=== PATIENT | male | born 1970 | race Caucasian/White ===

== ENCOUNTER 2017-01-13 11:38 | Inpatient (IN) | payer BC ==
[2017-01-13] MEDS ORDERED: Sodium Chloride 0.9% 1,000 ML IV STA ×2 (11:45→14:14)
--- NOTE | 2017-01-13 11:55 | ED PDOC ---
Arrival/HPI - General Time Seen by Provider: 01/13/17 11:40 Historian: Patient - History of Present Illness Narrative History of Present Illness (Text): 01/13/17 11:45 A 46 year old male, who denies any past medical history, brought into the emergency department by EMS complaining of epigastric abdominal pain since this morning. Patient notes nausea, lightheadedness and diaphoresis. Contrary to triage patient denies any chest pain but says his pain is epigastric. Patient denies any fever, chills, vomiting, diarrhea, constipation, shortness of breath or any other complaints. PMD: None Time/Duration: Other (this morning) Symptom Course: Unchanged Quality: Other Context: Other Past Medical History - Provider Review Nursing Documentation Reviewed: Yes Family/Social History - Physician Review Nursing Documentation Reviewed: Yes Family/Social History: No Known Family HX Allergies/Home Meds Allergies/Adverse Reactions: Allergies No Known Allergies Allergy (Verified 01/13/17 11:48) Home Medications: Home Meds Medication Instructions Recorded Confirmed No Known Home Med 01/13/17 01/13/17 Review of Systems - Physician Review All systems were reviewed & negative as marked: Yes - Review of Systems Constitutional: absent: Fevers, Night Sweats Respiratory: absent: SOB Cardiovascular: absent: Chest Pain Gastrointestinal: Abdominal Pain (epigastric), Nausea. absent: Constipation, Diarrhea, Vomiting Endocrine: Diaphoresis Physical Exam Vital Signs Reviewed: Yes Vital Signs Temp Pulse Resp BP Pulse Ox 01/13/17 14:10 88 18 95/63 L 100 01/13/17 13:09 97.6 F 85 18 106/64 98 01/13/17 12:56 98.0 F 78 17 106/64 99 Temperature: Afebrile Blood Pressure: Normal Pulse: Regular Respiratory Rate: Normal Appearance: Positive for: Well-Appearing, Non-Toxic, Comfortable Pain Distress: None Mental Status: Positive for: Alert and Oriented X 3 - Systems Exam Head: Present: Atraumatic, Normocephalic Pupils: Present: PERRL Extroacular Muscles: Present: EOMI Conjunctiva: Present: Normal Mouth: Present: Moist Mucous Membranes Neck: Present: Normal Range of Motion Respiratory/Chest: Present: Clear to Auscultation, Good Air Exchange. No: Respiratory Distress, Accessory Muscle Use Cardiovascular: Present: Regular Rate and Rhythm, Normal S1, S2. No: Murmurs Abdomen: Present: Tenderness (epigastric tenderness to palpation), Normal Bowel Sounds. No: Distention, Peritoneal Signs, Rebound, Guarding, McBurney's Point Tender, Rovsing's Sign Present Rectal: Present: Melena (watery stool). No: Hemorrhoids, Normal Rectal Tone, Fissures, Nodule/Mass/Lesions Back: Present: Normal Inspection Upper Extremity: Present: Normal Inspection. No: Cyanosis, Edema Lower Extremity: Present: Normal Inspection. No: Edema Neurological: Present: GCS=15, CN II-XII Intact, Speech Normal Skin: Present: Warm, Dry, Normal Color. No: Rashes Psychiatric: Present: Alert, Oriented x 3, Normal Insight, Normal Concentration Medical Decision Making ED Course and Treatment: 01/13/17 11:45 Impression: A 46 year old male with epigastric abdominal pain. Patient notes nausea and diaphoresis, but denies chest pain. Differential Diagnosis included but are not limited to: Gastritis vs. Pancreatitis vs GI bleed Plan: -- Chest xray -- EKG -- Labs -- Pepcid, IV fluids and Zofran -- Reassess and disposition Progress Notes: EKG shows sinus tachycardia at 102 BPM. Interpreted by me. Report Date : 01/13/2017 12:40:44 Procedure: Chest xray Dictator : Oscar Griggs MD IMPRESSION: No active disease. 01/13/17 12:56 Patient reports this morning her noted black stool. Rectal exam showed positive for melena. Labs reviewed, hemoglobin of 7.5. Plan includes blood transfusion, consent obtained. Will admit to telemetry observation. 01/13/17 14:[address] Chapa who requests validation engineer Dr. Camarena for GI. Discussed case with Dr. Camarena who recommends Protonix IV bolus and then drip. Also recommends NPO for now and she will come and evaluate patient. Patient is hemodynamically stable for Telemetry. 01/13/17 14:31 Patient's BP dropped to 95/63 with HR [address]. [address] Dr. Pappas ICU who came right away to the ED to see patient. He will accept the case to the ICU. - Critical Care Critical Care Minutes: 60 minutes - Lab Interpretations Lab Results: 01/13/17 12:22 01/13/17 12:22 Lab Results 01/13/17 13:57: Iron 201 H, TIBC 247 L, % Saturation 81 H 01/13/17 13:45: Blood Type Pending, Antibody Screen Pending, Crossmatch See Detail, BBK History Checked No verified bt 01/13/17 13:00: POC Glucose (mg/dL) 148 H 01/13/17 12:22: Sodium 141, Potassium 3.9, Chloride 108 H, Carbon Dioxide 25, Anion Gap 12, BUN 26 H, Creatinine 0.9, Est GFR ( Amer) > 60, Est GFR ( Non-Af Amer) > 60, Random Glucose 108, Calcium 8.1 L, Total Bilirubin 0.5, AST 72 H, ALT 56, Alkaline Phosphatase 65, Lactate Dehydrogenase 336, Total Creatine Kinase 126, Troponin I < 0.01, Total Protein 5.0 L, Albumin 2.6 L, Globulin 2.4, Albumin/Globulin Ratio 1.1, Lipase 47 01/13/17 12:22: WBC 6.5, RBC 2.38 L, Hgb 7.5 L, Hct 22.6 L, MCV 95.0, MCH 31.5, MCHC 33.2, RDW 13.0, Plt Count 194, MPV 10.9, Gran % 73.7 H, Lymph % (Auto) 19.3 L, [place] % (Auto) 5.8, Eos % (Auto) 0.9 L, Baso % (Auto) 0.3, Gran # 4.81, Lymph # 1.3, [place] # 0.4, Eos # 0.1, Baso # 0.02 I have reviewed the lab results: Yes - RAD Interpretation Radiology Orders: 01/13/17 11:47 CXR [CHEST PORTABLE] [RAD] Stat - Medication Orders Current Medication Orders: Pantoprazole Sodium (Protonix 40mg Ivpb) 40 mg in 100 mls @ 20 mls/hr IVPB .Q5H KENYATTA Sodium Chloride (Sodium Chloride 0.9%) 1,000 mls @ 999 mls/hr IV .Q1H1M STA Stop: 01/13/17 15:14 Discontinued Medications Famotidine (Pepcid) 20 mg IVP STAT STA Stop: 01/13/17 11:46 Last Admin: 01/13/17 12:22 Dose: 20 mg IVP Administration Document 01/13/17 12:22 AD (Rec: 01/13/17 12:23 AD [facility] [id number] Charges for Administration # of IVP Administrations 1 Sodium Chloride (Sodium Chloride 0.9%) 1,000 mls @ 1,000 mls/hr IV .Q1H STA Stop: 01/13/17 12:44 Last Admin: 01/13/17 12:23 Dose: 1,000 mls/hr eMAR Start Stop Document 01/13/17 12:23 AD (Rec: 01/13/17 12:23 AD [facility] [id number] Intravenous Solution Start Date 01/13/17 Start Time 12:23 Ondansetron HCl (Zofran Inj) 4 mg IVP STAT STA Stop: 01/13/17 11:46 Last Admin: 01/13/17 12:22 Dose: 4 mg IVP Administration Document 01/13/17 12:22 AD (Rec: 01/13/17 12:22 AD [facility] [id number]) Charges for Administration # of IVP Administrations 1 Pantoprazole Sodium (Protonix Inj) 80 mg IVP STAT STA Stop: 01/13/17 13:01 Last Admin: 01/13/17 14:27 Dose: 80 mg IVP Administration Document 01/13/17 14:27 AD (Rec: 01/13/17 14:27 AD [facility] [id number]) Charges for Administration # of IVP Administrations 1 - Scribe Statement The provider has reviewed the documentation as recorded by the Scribe Amanda Heath Provider Scribe Attestation: All medical record entries made by the Scribe were at my direction and personally dictated by me. I have reviewed the chart and agree that the record accurately reflects my personal performance of the history, physical exam, medical decision making, and the department course for this patient. I have also personally directed, reviewed, and agree with the discharge instructions and disposition. Disposition/Present on Arrival - Present on Arrival Any Indicators Present on Arrival: No - Disposition Have Diagnosis and Disposition been Completed?: Yes Diagnosis: GI bleeding Disposition Time: 12:56 Patient Plan: Admission, ICU Patient Problems: Current Active Problems Problem Status Onset GI bleeding Acute Condition: CRITICAL
[2017-01-13 12:36] LABS: ALB/GLOB RATIO 1.1 (1.1-1.8); ALKALINE PHOSPHATASE 65 U/L (38-126); ALT/SGPT 56 U/L (7-56); AST/SGOT 72 U/L (17-59); BASO # 0.02 K/mm3 (0.0-2.0); BASO % 0.3 % (0.0-3.0); BILIRUBIN,TOTAL 0.5 mg/dL (0.2-1.3); BLOOD UREA NITROGEN 26 mg/dL (7-21); CALCIUM 8.1 mg/dL (8.4-10.5); CARBON DIOXIDE 25 mmol/L (21-33); CHLORIDE 108 mmol/L (98-107); EOS # 0.1 (0.0-0.7); EOS % 0.9 % (1.5-5.0); GFR AFRICAN-AMERICAN > 60; GLUCOSE,RANDOM 108 mg/dL (70-110); GRAN # 4.81 (1.4-6.5); GRAN % 73.7 % (50.0-68.0); LIPASE 47 U/L (23-300); LYMPH # 1.3 (1.2-3.4); LYMPH % 19.3 % (22.0-35.0); MEAN CORPUSCULAR HEMOGLOBIN 31.5 pg (25.0-35.0); MEAN CORPUSCULAR HGB CONC 33.2 g/dl (31.0-37.0); MEAN PLATELET VOLUME 10.9 fl (7.0-11.0); MONO # 0.4 (0.1-0.6); MONO % 5.8 % (1.0-6.0); POTASSIUM 3.9 mmol/L (3.6-5.0); SODIUM 141 mmol/L (132-148); WHITE BLOOD COUNT 6.5 10^3/ul (4.5-11.0)
[2017-01-13 12:39] LABS: HEMATOCRIT 22.6 % (42.0-52.0)
--- NOTE | 2017-01-13 12:42 | RAD ---
HISTORY: chest pain COMPARISON: No prior. FINDINGS: LUNGS: No active pulmonary disease. PLEURA: No significant pleural effusion identified, no pneumothorax apparent. CARDIOVASCULAR: Normal. OSSEOUS STRUCTURES: No significant abnormalities. VISUALIZED UPPER ABDOMEN: Normal. OTHER FINDINGS: None. IMPRESSION: No active disease.
[2017-01-13 12:47] LABS: TROPONIN I < 0.01 ng/mL
[2017-01-13 14:18] LABS: IRON 201 ug/dL (45-180)
[2017-01-13 14:28] LABS: INR 1.06 (0.93-1.08); PARTIAL THROMBOPLASTIN TIME 23.1 Seconds (23.7-30.8)
[2017-01-13] MEDS: Pantoprazole 40mg/100ml IVPB 40 MG/100 ML BAG IVPB SCH ×2 (14:36→19:30)
[2017-01-13] MEDS ORDERED: Sodium Chloride 0.9% 1,000 ML IV SCH (15:15)
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
--- NOTE | 2017-01-13 17:49 | CP.PCM.CON ---
History of Present Illness - History of Present Illness History of Present Illness: General Surgery Consult for Dr. Franco 46M S&E at bedside at ICU. Patient states he is admitted for: epigastric abdominal pain that began in the morning and melena in the ED. Patient states he 's never had this before. Patient admits to having acid reflux and takes no medications at home. Patient does not have a PCP/PMD. Patient states his abdominal pain is below his umbilicus now and is characterized as dull. Patient denies F/C, Diarrhea, constipation, SOB consulted for: upper GI bleed. PMH: no past medical history PSH: none SHX: denies tobacco, illicit drug use, three shots of liquor and tow beers daily for many years FHx: colon cancer at 43 yo allergies NKDA Past Patient History - Past Social History Smoking Status: Never Smoked - PSYCHIATRIC Hx Substance Use: No - SURGICAL HISTORY Hx Surgeries: Yes (pneumothorax) Meds Allergies/Adverse Reactions: Allergies Allergy/AdvReac Type Severity Reaction Status Date / Time No Known Allergies Allergy Verified 01/13/17 11:48 - Medications Medications: Current Medications Pantoprazole Sodium (Protonix 40mg Ivpb) 40 mg in 100 mls @ 20 mls/hr IVPB .Q5H KENYATTA Last Admin: 01/13/17 14:36 Dose: 20 mls/hr Octreotide Acetate 1,250 mcg/ (Sodium Chloride) 252.5 mls @ 5.05 mls/hr IV .Q24H KENYATTA; 25 MCG/HR PRN Reason: Protocol Last Admin: 01/13/17 16:12 Dose: 25 mcg/hr, 5.05 mls/hr Sodium Chloride (Sodium Chloride 0.9%) 1,000 mls @ 100 mls/hr IV .Q10H KENYATTA Last Admin: 01/13/17 16:13 Dose: 100 mls/hr Folic Acid 1 mg/ Thiamine HCl 100 mg/ Multivitamins/Vitamin C 10 ml/ Sodium Chloride 1,011.2 mls @ 100 mls/hr IV .Q10H7M KEN[place]TA Lorazepam (Ativan) 1 mg IVP Q6H PRN; Protocol PRN Reason: Anxiety Physical Exam - Constitutional Appears: Non-toxic - Head Exam Head Exam: NORMAL INSPECTION - Eye Exam Eye Exam: EOMI, Normal appearance - ENT Exam ENT Exam: Mucous Membranes Moist - Neck Exam Neck exam: Positive for: Full Rom, Normal Inspection - Respiratory Exam Respiratory Exam: Clear to Auscultation Bilateral, NORMAL BREATHING PATTERN. absent: Accessory Muscle Use, Respiratory Distress - Cardiovascular Exam Cardiovascular Exam: REGULAR RHYTHM - GI/Abdominal Exam GI & Abdominal Exam: Normal Bowel Sounds, Soft, Tenderness. absent: Firm, Guarding, Rigid Additional comments: lower abdominal pain. no rebound. defined as sore and dull. - Extremities Exam Extremities exam: Positive for: full ROM, normal inspection. Negative for: joint swelling, pedal edema - Neurological Exam Neurological exam: Alert, Oriented x3 - Psychiatric Exam Psychiatric exam: Normal Affect, Normal Mood - Skin Skin Exam: Dry, Intact, Normal Color, Warm Results - Vital Signs Recent Vital Signs: Last Vital Signs Temp 98.1 F 01/13/17 16:40 Pulse 82 01/13/17 16:40 Resp 30 H 01/13/17 16:31 BP 112/62 01/13/17 16:31 Pulse Ox 89 L 01/13/17 16:31 - Labs Result Diagrams: 01/13/17 12:22 01/13/17 12:22 Labs: Laboratory Results - last 24 hr 01/13/17 01/13/17 14:10 14:17 PT 11.5 INR 1.06 APTT 23.1 L Blood Type Confirm O POSITIVE Assessment & Plan - Assessment and Plan (Free Text) Assessment: 46M presents with upper GI bleed Plan: NPO transfuse as needed, 2u PRBC ordered to transfuse per ICU team f/u GI recommendations f/u EGD results c/w pain control d/w Dr. Salvador Dickinson DO PGY1 - Date & Time Date: 01/13/17 Time: 17:48
[2017-01-13] MEDS ORDERED: Iohexol 240 (50 ml) ONE (17:58)
[2017-01-13 18:17] LABS: BASO # 0.01 K/mm3 (0.0-2.0); BASO % 0.1 % (0.0-3.0); GRAN # 9.5 (1.4-6.5); GRAN % 84.3 % (50.0-68.0); LYMPH # 1.4 (1.2-3.4); LYMPH % 12.1 % (22.0-35.0); MEAN CELL VOLUME 93.9 fl (80.0-105.0); MEAN CORPUSCULAR HEMOGLOBIN 32.2 pg (25.0-35.0); MEAN CORPUSCULAR HGB CONC 34.3 g/dl (31.0-37.0); MONO # 0.4 (0.1-0.6); MONO % 3.5 % (1.0-6.0); RED CELL DISTRIBUTION WIDTH 12.9 % (11.5-14.5); WHITE BLOOD COUNT 11.3 10^3/ul (4.5-11.0)
[2017-01-13 18:19] LABS: VENOUS BLOOD GAS BASE EXCESS -0.8 mmol/L (0.0-2.0); VENOUS BLOOD PH 7.38 (7.32-7.43)
[2017-01-13 18:29] LABS: HEMATOCRIT 21.6 % (42.0-52.0)
[2017-01-13] MEDS: Folic Acid 1 MG, Thiamine 100 MG, Multivitamin (MVI) 10 ML in Sodium Chloride 0.9% 1,00... IV SCH (19:38)
[2017-01-13] MEDS ORDERED: Multivitamin (MVI) 10 ML, Thiamine 100 MG, Folic Acid 1 MG in Sodium Chloride 0.9% 1,00... IV ONE (21:33)
--- NOTE | 2017-01-13 22:45 | CARD ---
APPROVED REPORT EKG Measurement Heart [id number] <Conclusion> Sinus tachycardia Otherwise normal ECG
[2017-01-14] MEDS: Pantoprazole 40mg/100ml IVPB 40 MG/100 ML BAG IVPB SCH ×2 (00:16→05:15)
[2017-01-14 00:33] LABS: VENOUS BLOOD GAS BASE EXCESS -1.8 mmol/L (0.0-2.0); VENOUS BLOOD PH 7.38 (7.32-7.43)
[2017-01-14 00:38] LABS: BASO # 0.01 K/mm3 (0.0-2.0); BASO % 0.1 % (0.0-3.0); EOS # 0.1 (0.0-0.7); EOS % 0.9 % (1.5-5.0); GRAN # 6.28 (1.4-6.5); GRAN % 67.4 % (50.0-68.0); LYMPH # 2.4 (1.2-3.4); LYMPH % 25.4 % (22.0-35.0); MEAN CELL VOLUME 91.7 fl (80.0-105.0); MEAN CORPUSCULAR HEMOGLOBIN 32.3 pg (25.0-35.0); MEAN CORPUSCULAR HGB CONC 35.2 g/dl (31.0-37.0); MEAN PLATELET VOLUME 11.1 fl (7.0-11.0); MONO # 0.6 (0.1-0.6); MONO % 6.2 % (1.0-6.0); RED CELL DISTRIBUTION WIDTH 13.6 % (11.5-14.5); WHITE BLOOD COUNT 9.3 10^3/ul (4.5-11.0)
[2017-01-14] MEDS: Folic Acid 1 MG, Thiamine 100 MG, Multivitamin (MVI) 10 ML in Sodium Chloride 0.9% 1,00... IV SCH ×2 (03:00→21:07)
--- NOTE | 2017-01-14 04:02 | CON ---
DATE: 01/13/2017 HISTORY OF PRESENT ILLNESS: This is a 46-year-old gentleman without significant past medical history, who was brought into emergency room by EMS after developed acute abdominal pain since this morning. He also reported nauseated, lightheaded, and diaphoretic. The patient, however, denies any chest pain, but states that the pain is epigastric. The patient also had one bloody bowel movement and his blood pressure at one point dropped down to high 90 systolic. No fever. No chills. No sweats. No constipation. PERSONAL HISTORY: None. SOCIAL HISTORY: The patient is heavy alcohol drinker. He drinks every day 3-4 shots of vodka. No tobacco or smoking. No illicit drug abuse. FAMILY HISTORY: Noncontributory. ALLERGIES: NO KNOWN DRUG ALLERGIES. REVIEW OF SYSTEMS: Revealed a 12-point system other than mentioned in history of present illness is negative. MEDICATIONS: None. PHYSICAL EXAMINATION VITAL SIGNS: Blood pressure 110/40, heart rate 94, temperature 98.1, respiratory rate 16, and oxygen saturation 100% on room air. HEENT: Head and neck are atraumatic. LUNGS: Clear to auscultation bilaterally. HEART: Regular rate, S1 and S2 normal. ABDOMEN: Soft, tender mildly in mesogastric area. No rebound tenderness. No peritoneal signs. MUSCULOSKELETAL: No C/C/E. SKIN: Color moist. PSYCHIATRIC: The patient is alert and oriented x3. LABORATORY DATA: WBC 6.5, hemoglobin 7.5, and platelet count 194. Sodium 141, potassium 3.9, chloride 108, carbon dioxide 25, BUN 26, and creatinine 0.9. Troponin less than 0.01, lipase 47, albumin 2.6, AST is 72, and ALT 56. INR 1.06. Blood glucose 148. Chest x-ray, no active pulmonary disease. ASSESSMENT AND PLAN: This is a 46-year-old gentleman who presented with what appears to be upper gastrointestinal bleeding/massive/symptomatic. No prior history of gastrointestinal bleeding, liver disease, or hemoglobin level available. The patient is known to be a heavy drinker and possibility of could not be ruled out at present time. We will proceed with n.p.o., IV fluid, Protonix drip, octreotide drip, and serial CBC. We will get VBG with lactic acid level. We will try on troponin just to make sure that the patient does not have supply-demand mismatch ischemia. We will get the CAT scan of the abdomen and pelvis to rule out intraabdominal pathology as well. GI consult was called and we will see the patient shortly. We will continue to target euvolemia, glycemia, normothermia, and oxygen saturation more than 90%. We will continue with DVT and GI prophylaxis. Ernesto Pappas MD
--- NOTE | 2017-01-14 06:24 | HP ---
CHIEF COMPLAINT: Abdominal pain, nausea, lightheadedness, and diaphoresis. HISTORY OF PRESENT ILLNESS: Mr. Jason Barbosa is 46 years old male with no significant past medical history brought to the emergency department by the EMS complaining of epigastric abdominal pain since this morning. The patient states some nausea, lightheadedness, and diaphoresis . The patient denies any chest pain, but says his pain is epigastric. The patient denies fever, chills, diarrhea, constipation, or shortness of breath. I saw the patient in the unit. He was getting IV blood. PAST MEDICAL HISTORY: Not significant. FAMILY HISTORY: Father and mother noncontributory. ALLERGIES: THE PATIENT IS NOT ALLERGIC WITH ANY MEDICATION. REVIEW OF SYSTEMS: The patient was seen and examined at the bedside in the unit. No fever or night sweats. No shortness of breath. No chest pain. Has only abdominal epigastric pain. Had nausea. No constipation, diarrhea, or vomiting. History of diaphoresis, but right now he is not diaphoretic. No insomnia. PHYSICAL EXAMINATION: VITAL SIGNS: Temperature is 98.0, pulse 78, respiratory rate 17, and blood pressure 106/64. HEENT: Head is normocephalic and atraumatic. Eyes, PERRLA. Extraocular muscles intact. Conjunctivae clear. Nose is patent. Mucous membrane moist. NECK: Supple. No carotid bruits. No JVD or thyromegaly. CHEST: Bilaterally symmetrical. HEART: S1 and S2 positive. LUNGS: Clear to auscultation. ABDOMEN: Soft. Bowel sounds positive. No organomegaly. EXTREMITIES: No edema. No cyanosis. NEUROLOGIC: The patient is awake and alert. Moving all 4 extremities. No focal deficit. LABORATORY DATA: White blood cell was 6.5, repeat is 11.3; hemoglobin 7.4; hematocrit 21.6; and platelets 160. Sodium 141, potassium 3.9, BUN 26, creatinine 0.9, glucose 148, iron 201, saturation 81, and AST 42. ASSESSMENT AND PLAN: Mr. Jason Barbosa is 46 years old male with leukocytosis, anemia, hyperchloremia, increased BUN, hyperglycemia, hypocalcemia, and abnormal liver function tests. Toxicology negative and aPTT 23.1. He has gastrointestinal bleeding, now nothing by mouth. Getting transfusion of packed RBC, ordered at least 2 units. Gastroenterology is on the case. May need EGD and pain control. Seen by Dr. Franco, surgeon. According to the patient, the patient's brother was diagnosed with colon cancer at the age of 44 years. The patient was using NSAID or may be alcohol. No prior EGD or colonoscopy. We will monitor serial H&H. Continue PPI drip, on octreotide drip, and history of alcohol abuse, keeping n.p.o., monitoring for alcohol withdrawals. CAT scan with p.o. contrast is done. EGD scheduled for tomorrow by Gastroenterology. Close monitoring in the unit. GI and DVT prophylaxis. Repeat labs. Lulu Chapa MD [facility]
--- NOTE | 2017-01-14 07:21 | CP.CCUPN ---
<BibiJhoana - Last Filed: 01/14/17 13:13> CCU Subjective - Physician Review Subjective (Free Text): 01/14/17 13:13 Patient seen and examined at bedside s/p EGD. Patient had no acute complaints. Denied fever, chills, headache, dizziness, chest pain, palpitations, SOB, cough , hematemesis, abd pain, nausea, vomiting, bowel/bladder complaints, pain/ swelling in his legs bilaterally. Patient has received a total of 4U PRBC and is due for push enteroscopy and colonoscopy tomorrow 01/15. CCU Objective - Vital Signs / Intake & Output Vital Signs (Last 4 hours): Vital Signs Temp Pulse Resp BP Pulse Ox 01/14/17 06:42 98.2 F 70 18 121/72 01/14/17 06:00 69 14 124/69 97 01/14/17 05:57 98.1 F 75 23 136/79 01/14/17 05:41 98 F 71 16 129/72 01/14/17 05:15 98.1 F 70 20 128/73 01/14/17 03:54 98.1 F 72 20 131/72 Intake and Output (Last 8hrs): Intake & Output 01/13/17 01/14/17 01/14/17 22:59 06:59 14:59 Intake Total 3399 2551 Output Total 300 750 Balance 3099 1801 Weight 99.382 kg Intake: IV 2270 1560 Left Antecubital 20 Left Forearm 2200 240 Left Hand 120 Right Hand 50 1200 Oral 500 Blood Product 559 941 Apheresis Rbc Cp2d As3 Lr 282 1st Unit [id number] Apheresis Rbc Cp2d As3 Lr 277 1st Unit [id number] Apheresis Rbc Cp2d As3 Lr 281 1st Unit [id number] Red Blood Cells Cpd As1 0 Lr Unit [id number] Other 70 50 Apheresis Rbc Cp2d As3 Lr 20 1st Unit [id number] Apheresis Rbc Cp2d As3 Lr 50 1st Unit [id number] Apheresis Rbc Cp2d As3 Lr 50 1st Unit [id number] Output: Urine 300 750 Urine, Voided 300 750 Other: # Voids Urine, Voided 3 # Bowel Movements 3 1 - Physical Exam Head: Positive for: Atraumatic, Normocephalic Pupils: Positive for: PERRL Extroacular Muscles: Positive for: EOMI Conjunctiva: Positive for: Normal Mouth: Positive for: Moist Mucous Membranes Neck: Positive for: Normal Range of Motion Respiratory/Chest: Positive for: Clear to Auscultation, Good Air Exchange. Negative for: Respiratory Distress, Accessory Muscle Use Cardiovascular: Positive for: Regular Rate and Rhythm, Normal S1, S2. Negative for: Murmurs Abdomen: Positive for: Tenderness (epigastric tenderness to palpation), Normal Bowel Sounds. Negative for: Distention, Peritoneal Signs, Rebound, Guarding, McBurney's Point Tender, Rovsing's Sign Present Rectal: Negative for: Hemorrhoids, Normal Rectal Tone, Fissures, Nodule/Mass/ Lesions Back: Positive for: Normal Inspection Upper Extremity: Positive for: Normal Inspection. Negative for: Cyanosis, Edema Lower Extremity: Positive for: Normal Inspection. Negative for: Edema Neurological: Positive for: GCS=15, CN II-XII Intact, Speech Normal Skin: Positive for: Warm, Dry, Normal Color. Negative for: Rashes Psychiatric: Positive for: Alert, Oriented x 3, Normal Insight, Normal Concentration - Medications Active Medications: Active Medications Generic Name Dose Route Start Last Admin Trade Name Freq PRN Reason Stop Dose Admin Pantoprazole Sodium 40 mg in 100 mls @ 20 mls/hr 01/13/17 14:15 01/14/17 00: 16 Protonix 40mg Ivpb IVPB 20 mls/hr .Q5H KENYATTA Administration Sodium Chloride 1,000 mls @ 100 mls/hr 01/13/17 15:15 01/13/17 16:13 Sodium Chloride 0.9% IV 100 mls/hr .Q10H KENYATTA Administration Folic Acid 1 mg/ Thiamine HCl 1,011.2 mls @ 100 mls/hr 01/13/17 16:45 19:38 100 mg/ Multivitamins/Vitamin IV 100 mls/hr C 10 ml/ Sodium Chloride .Q10H7M KENYATTA Administration Octreotide Acetate 1,250 mcg/ 252.5 mls @ 10.1 mls/hr 01/13/17 19:37 19:40 Sodium Chloride IV 50 mcg/hr .Q24H KENYATTA 10.1 mls/hr Protocol Administration 50 MCG/HR Lorazepam 1 mg 01/13/17 16:34 Ativan IVP Q6H PRN Anxiety Protocol - Patient Studies Lab Studies: Lab Studies 01/14/17 01/14/17 01/13/17 Range/Units 00:10 00:10 19:57 WBC 9.3 (4.5-11.0) 10^3/ul RBC 2.29 L (3.5-6.1) 10^6/uL Hgb 7.4 L (14.0-18.0) g/dL Hct 21.0 L (42.0-52.0) % MCV 91.7 (80.0-105.0) fl MCH 32.3 (25.0-35.0) pg MCHC 35.2 (31.0-37.0) g/dl RDW 13.6 (11.5-14.5) % Plt Count 139 (120.0-450.0) 10^3/uL MPV 11.1 H (7.0-11.0) fl Gran % 67.4 (50.0-68.0) % Lymph % (Auto) 25.4 (22.0-35.0) % [place] % (Auto) 6.2 H (1.0-6.0) % Eos % (Auto) 0.9 L (1.5-5.0) % Baso % (Auto) 0.1 (0.0-3.0) % Gran # 6.28 (1.4-6.5) Lymph # 2.4 (1.2-3.4) [place] # 0.6 (0.1-0.6) Eos # 0.1 (0.0-0.7) Baso # 0.01 (0.0-2.0) K/mm3 PT (9.9-11.8) Seconds INR (0.93-1.08) APTT (23.7-30.8) Seconds pO2 48 (30-55) mm/Hg VBG pH 7.38 (7.32-7.43) VBG pCO2 39.0 L (40-60) VBG HCO3 23.1 (21-28) mmol/l VBG Total CO2 24.3 (22-28) mmol.L VBG O2 Sat (Calc) 88.2 H (40-65) % VBG Base Excess -1.8 L (0.0-2.0) mmol/L VBG Potassium 3.7 (3.6-5.2) mmol/L Sodium 136.0 (132-148) mmol/L Chloride 107.0 (98-107) mmol/L Glucose 141 H (75-110) mg/dl Lactate 4.3 H* (0.7-2.1) mmol/L FiO2 21.0 % Troponin I ng/mL Venous Blood Potassium 3.7 (3.6-5.2) mmol/L Urine Opiates Screen Negative (NEGATIVE) Urine Methadone Screen Negative (NEGATIVE) Ur Barbiturates Screen Negative (NEGATIVE) Ur Phencyclidine Scrn Negative (NEGATIVE) Ur Amphetamines Screen Negative (NEGATIVE) U Benzodiazepines Scrn Negative (NEGATIVE) U Oth Cocaine Metabols Negative (NEGATIVE) U Cannabinoids Screen Negative (NEGATIVE) Blood Type Confirm 01/13/17 01/13/17 01/13/17 Range/Units 18:00 18:00 18:00 WBC 11.3 H D (4.5-11.0) 10^3/ul RBC 2.30 L (3.5-6.1) 10^6/uL Hgb 7.4 L (14.0-18.0) g/dL Hct 21.6 L (42.0-52.0) % MCV 93.9 (80.0-105.0) fl MCH 32.2 (25.0-35.0) pg MCHC 34.3 (31.0-37.0) g/dl RDW 12.9 (11.5-14.5) % Plt Count 160 (120.0-450.0) 10^3/uL MPV 11.0 (7.0-11.0) fl Gran % 84.3 H (50.0-68.0) % Lymph % (Auto) 12.1 L (22.0-35.0) % [place] % (Auto) 3.5 (1.0-6.0) % Eos % (Auto) 0.0 L (1.5-5.0) % Baso % (Auto) 0.1 (0.0-3.0) % Gran # 9.50 H (1.4-6.5) Lymph # 1.4 (1.2-3.4) [place] # 0.4 (0.1-0.6) Eos # 0.0 (0.0-0.7) Baso # 0.01 (0.0-2.0) K/mm3 PT (9.9-11.8) Seconds INR (0.93-1.08) APTT (23.7-30.8) Seconds pO2 28 L (30-55) mm/Hg VBG pH 7.38 (7.32-7.43) VBG pCO2 41.0 (40-60) VBG HCO3 24.3 (21-28) mmol/l VBG Total CO2 25.6 (22-28) mmol.L VBG O2 Sat (Calc) 60.1 (40-65) % VBG Base Excess -0.8 L (0.0-2.0) mmol/L VBG Potassium 4.5 (3.6-5.2) mmol/L Sodium 140.0 (132-148) mmol/L Chloride 113.0 H (98-107) mmol/L Glucose 131 H (75-110) mg/dl Lactate 2.3 H (0.7-2.1) mmol/L FiO2 21.0 % Troponin I 0.02 D ng/mL Venous Blood Potassium 4.5 (3.6-5.2) mmol/L Urine Opiates Screen (NEGATIVE) Urine Methadone Screen (NEGATIVE) Ur Barbiturates Screen (NEGATIVE) Ur Phencyclidine Scrn (NEGATIVE) Ur Amphetamines Screen (NEGATIVE) U Benzodiazepines Scrn (NEGATIVE) U Oth Cocaine Metabols (NEGATIVE) U Cannabinoids Screen (NEGATIVE) Blood Type Confirm 01/13/17 01/13/17 Range/Units 14:17 14:10 WBC (4.5-11.0) 10^3/ul RBC (3.5-6.1) 10^6/uL Hgb (14.0-18.0) g/dL Hct (42.0-52.0) % MCV (80.0-105.0) fl MCH (25.0-35.0) pg MCHC (31.0-37.0) g/dl RDW (11.5-14.5) % Plt Count (120.0-450.0) 10^3/uL MPV (7.0-11.0) fl Gran % (50.0-68.0) % Lymph % (Auto) (22.0-35.0) % [place] % (Auto) (1.0-6.0) % Eos % (Auto) (1.5-5.0) % Baso % (Auto) (0.0-3.0) % Gran # (1.4-6.5) Lymph # (1.2-3.4) [place] # (0.1-0.6) Eos # (0.0-0.7) Baso # (0.0-2.0) K/mm3 PT 11.5 (9.9-11.8) Seconds INR 1.06 (0.93-1.08) APTT 23.1 L (23.7-30.8) Seconds pO2 (30-55) mm/Hg VBG pH (7.32-7.43) VBG pCO2 (40-60) VBG HCO3 (21-28) mmol/l VBG Total CO2 (22-28) mmol.L VBG O2 Sat (Calc) (40-65) % VBG Base Excess (0.0-2.0) mmol/L VBG Potassium (3.6-5.2) mmol/L Sodium (132-148) mmol/L Chloride (98-107) mmol/L Glucose (75-110) mg/dl Lactate (0.7-2.1) mmol/L FiO2 % Troponin I ng/mL Venous Blood Potassium (3.6-5.2) mmol/L Urine Opiates Screen (NEGATIVE) Urine Methadone Screen (NEGATIVE) Ur Barbiturates Screen (NEGATIVE) Ur Phencyclidine Scrn (NEGATIVE) Ur Amphetamines Screen (NEGATIVE) U Benzodiazepines Scrn (NEGATIVE) U Oth Cocaine Metabols (NEGATIVE) U Cannabinoids Screen (NEGATIVE) Blood Type Confirm O POSITIVE Laboratory Results - last 24 hr 01/13/17 01/13/17 01/13/17 14:10 14:17 18:00 WBC 11.3 H D RBC 2.30 L Hgb 7.4 L Hct 21.6 L MCV 93.9 MCH 32.2 MCHC 34.3 RDW 12.9 Plt Count 160 MPV 11.0 Gran % 84.3 H Lymph % (Auto) 12.1 L [place] % (Auto) 3.5 Eos % (Auto) 0.0 L Baso % (Auto) 0.1 Gran # 9.50 H Lymph # 1.4 [place] # 0.4 Eos # 0.0 Baso # 0.01 PT 11.5 INR 1.06 APTT 23.1 L pO2 VBG pH VBG pCO2 VBG HCO3 VBG Total CO2 VBG O2 Sat (Calc) VBG Base Excess VBG Potassium Sodium Chloride Glucose Lactate FiO2 Troponin I Venous Blood Potassium Urine Opiates Screen Urine Methadone Screen Ur Barbiturates Screen Ur Phencyclidine Scrn Ur Amphetamines Screen U Benzodiazepines Scrn U Oth Cocaine Metabols U Cannabinoids Screen Blood Type Confirm O POSITIVE 01/13/17 01/13/17 01/13/17 18:00 18:00 19:57 WBC RBC Hgb Hct MCV MCH MCHC RDW Plt Count MPV Gran % Lymph % (Auto) [place] % (Auto) Eos % (Auto) Baso % (Auto) Gran # Lymph # [place] # Eos # Baso # PT INR APTT pO2 28 L VBG pH 7.38 VBG pCO2 41.0 VBG HCO3 24.3 VBG Total CO2 25.6 VBG O2 Sat (Calc) 60.1 VBG Base Excess -0.8 L VBG Potassium 4.5 Sodium 140.0 Chloride 113.0 H Glucose 131 H Lactate 2.3 H FiO2 21.0 Troponin I 0.02 D Venous Blood Potassium 4.5 Urine Opiates Screen Negative Urine Methadone Screen Negative Ur Barbiturates Screen Negative Ur Phencyclidine Scrn Negative Ur Amphetamines Screen Negative U Benzodiazepines Scrn Negative U Oth Cocaine Metabols Negative U Cannabinoids Screen Negative Blood Type Confirm 01/14/17 01/14/17 00:10 00:10 WBC 9.3 RBC 2.29 L Hgb 7.4 L Hct 21.0 L MCV 91.7 MCH 32.3 MCHC 35.2 RDW 13.6 Plt Count 139 MPV 11.1 H Gran % 67.4 Lymph % (Auto) 25.4 [place] % (Auto) 6.2 H Eos % (Auto) 0.9 L Baso % (Auto) 0.1 Gran # 6.28 Lymph # 2.4 [place] # 0.6 Eos # 0.1 Baso # 0.01 PT INR APTT pO2 48 VBG pH 7.38 VBG pCO2 39.0 L VBG HCO3 23.1 VBG Total CO2 24.3 VBG O2 Sat (Calc) 88.2 H VBG Base Excess -1.8 L VBG Potassium 3.7 Sodium 136.0 Chloride 107.0 Glucose 141 H Lactate 4.3 H* FiO2 21.0 Troponin I Venous Blood Potassium 3.7 Urine Opiates Screen Urine Methadone Screen Ur Barbiturates Screen Ur Phencyclidine Scrn Ur Amphetamines Screen U Benzodiazepines Scrn U Oth Cocaine Metabols U Cannabinoids Screen Blood Type Confirm Fingerstick Blood Sugar Results: 148 Review of Systems - Constitutional Constitutional: absent: Fever, Chills - EENT Eyes: As Per HPI. absent: Blurred Vision Ears: As Per HPI. absent: Dizziness Nose/Mouth/Throat: As Per HPI. absent: Sore Throat - Cardiovascular Cardiovascular: As Per HPI. absent: Chest Pain, Dyspnea, Edema, Pedal Edema - Respiratory Respiratory: As Per HPI. absent: Cough, Dyspnea - Gastrointestinal Gastrointestinal: As Per HPI. absent: Abdominal Pain, Nausea, Vomiting - Genitourinary Genitourinary: As Per HPI. absent: Dysuria - Musculoskeletal Musculoskeletal: As Par HPI. absent: Numbness, Tingling - Integumentary Integumentary: As Per HPI. absent: Dry Skin - Neurological Neurological: As Per HPI. absent: Dizziness, Numbness, Tingling - Endocrine Endocrine: As Per HPI. absent: Polydipsia, Polyuria - Hematologic/Lymphatic Hematologic: As Per HPI. absent: Easy Bleeding, Easy Bruising, Lymphadenopathy Critical Care Progress Note - Nutrition Nutrition: Nutrition Category Date Time Status NPO Diet [DIET] Diets 01/14/17 Breakfast Ordered Assessment/Plan - Assessment and Plan (Free Text) Assessment: 46yo M PMHx EtOH abuse presents with melena Plan: Neuro: - No acute issues - AO x 3 Cardio: - no acute issues Pulm: - no acute issues GI: - Patient has hx of EtOH abuse and use of Advil 4x/week for headaches and presented with melena - EGD 01/14: LA Grade B esophagitis; Gastritis [biopsied]; Multiple duodenal ulcers with a clean ulcer base [Mcintosh Class III] - s/p 4 U PRBC transfusion - CT Abd/pelvis w/ contrast 01/13: questionable segmental colitis affecting the transverse through the sigmoid colon segments however the colon is not fully distended is limited eval secondarily. No pericolic reaction is evident. There is no ascites/free air. no over CT sign of hollow viscus perforation. Limited splenic flexure diverticula without definite diverticulitis pattern evident. - Protonix 40mg ivp daily - Clear liquid diet - NPO after midnight for push enteroscopy and colonoscopy - GI Dr. Tran on board - Surgery Dr. Franco on board Renal: - no acute issues Endo: - no acute issues ID: - no acute issues Heme/Onc: - s/p 4 U PRBC transfusion - Hgb 9.2 this AM - Monitor closely MSK: - no acute issues GI ppx: Protonix 40mg ivp qd DVT ppx: SCDs; VTE ppx on hold secondary to GI bleed Diet: Liquid; NPO after midnight Precautions: seizure and Alc withdrawal Case discussed with Dr. Ayah Mtz PGY2 <Ayah WILKINS,[facility] - Last Filed: 01/14/17 14:19> CCU Objective - Vital Signs / Intake & Output Intake and Output (Last 8hrs): Intake & Output 01/13/17 01/14/17 01/14/17 22:59 06:59 14:59 Intake Total 3399 2551 Output Total 300 750 Balance 3099 1801 Weight 219 lb 1.6 oz 219 lb Intake: IV 2270 1560 Left Antecubital 20 Left Forearm 2200 240 Left Hand 120 Right Hand 50 1200 Oral 500 Blood Product 559 941 Apheresis Rbc Cp2d As3 Lr 282 1st Unit [id number] Apheresis Rbc Cp2d As3 Lr 277 1st Unit [id number] Apheresis Rbc Cp2d As3 Lr 281 1st Unit [id number] Red Blood Cells Cpd As1 0 Lr Unit [id number] Other 70 50 Apheresis Rbc Cp2d As3 Lr 20 1st Unit [id number] Apheresis Rbc Cp2d As3 Lr 50 1st Unit [id number] Apheresis Rbc Cp2d As3 Lr 50 1st Unit [id number] Output: Urine 300 750 Urine, Voided 300 750 Other: # Voids Urine, Voided 3 # Bowel Movements 3 1 - Medications Active Medications: Active Medications Generic Name Dose Route Start Last Admin Trade Name Freq PRN Reason Stop Dose Admin Bisacodyl 10 mg 01/14/17 19:00 Dulcolax PO 01/14/17 19:01 ONCE ONE Folic Acid 1 mg/ Thiamine HCl 1,011.2 mls @ 100 mls/hr 01/13/17 16:45 03:00 100 mg/ Multivitamins/Vitamin IV 100 mls/hr C 10 ml/ Sodium Chloride .Q10H7M KENYATTA Administration Lorazepam 1 mg 01/13/17 16:34 Ativan IVP Q6H PRN Anxiety Protocol Pantoprazole Sodium 40 mg 01/14/17 10:00 01/14/17 10:41 Protonix Inj IVP 40 mg DAILY KENYATTA Administration - Patient Studies Lab Studies: Lab Studies 01/14/17 01/14/17 01/14/17 Range/Units 11:00 00:10 00:10 WBC 8.9 9.3 (4.5-11.0) 10^3/ul RBC 2.92 L 2.29 L (3.5-6.1) 10^6/uL Hgb 9.2 L 7.4 L (14.0-18.0) g/dL Hct 26.1 L 21.0 L (42.0-52.0) % MCV 89.4 91.7 (80.0-105.0) fl MCH 31.5 32.3 (25.0-35.0) pg MCHC 35.2 35.2 (31.0-37.0) g/dl RDW 15.5 H 13.6 (11.5-14.5) % Plt Count 140 139 (120.0-450.0) 10^3/uL MPV 11.5 H 11.1 H (7.0-11.0) fl Gran % 72.1 H 67.4 (50.0-68.0) % Lymph % (Auto) 19.3 L 25.4 (22.0-35.0) % [place] % (Auto) 6.7 H 6.2 H (1.0-6.0) % Eos % (Auto) 1.7 0.9 L (1.5-5.0) % Baso % (Auto) 0.2 0.1 (0.0-3.0) % Gran # 6.42 6.28 (1.4-6.5) Lymph # 1.7 2.4 (1.2-3.4) [place] # 0.6 0.6 (0.1-0.6) Eos # 0.2 0.1 (0.0-0.7) Baso # 0.02 0.01 (0.0-2.0) K/mm3 PT (9.9-11.8) Seconds INR (0.93-1.08) APTT (23.7-30.8) Seconds pO2 48 (30-55) mm/Hg VBG pH 7.38 (7.32-7.43) VBG pCO2 39.0 L (40-60) VBG HCO3 23.1 (21-28) mmol/l VBG Total CO2 24.3 (22-28) mmol.L VBG O2 Sat (Calc) 88.2 H (40-65) % VBG Base Excess -1.8 L (0.0-2.0) mmol/L VBG Potassium 3.7 (3.6-5.2) mmol/L Sodium 136.0 (132-148) mmol/L Chloride 107.0 (98-107) mmol/L Glucose 141 H (75-110) mg/dl Lactate 4.3 H* (0.7-2.1) mmol/L FiO2 21.0 % Transferrin (206-381) mg/dL Troponin I ng/mL Venous Blood Potassium 3.7 (3.6-5.2) mmol/L Urine Opiates Screen (NEGATIVE) Urine Methadone Screen (NEGATIVE) Ur Barbiturates Screen (NEGATIVE) Ur Phencyclidine Scrn (NEGATIVE) Ur Amphetamines Screen (NEGATIVE) U Benzodiazepines Scrn (NEGATIVE) U Oth Cocaine Metabols (NEGATIVE) U Cannabinoids Screen (NEGATIVE) Hepatitis A IgM Ab (NEGATIVE) Hep Bs Antigen (NEGATIVE) Hep B Core IgM Ab (NEGATIVE) Hepatitis C Antibody (NEGATIVE) Blood Type Confirm 01/13/17 01/13/17 01/13/17 Range/Units 19:57 18:00 18:00 WBC (4.5-11.0) 10^3/ul RBC (3.5-6.1) 10^6/uL Hgb (14.0-18.0) g/dL Hct (42.0-52.0) % MCV (80.0-105.0) fl MCH (25.0-35.0) pg MCHC (31.0-37.0) g/dl RDW (11.5-14.5) % Plt Count (120.0-450.0) 10^3/uL MPV (7.0-11.0) fl Gran % (50.0-68.0) % Lymph % (Auto) (22.0-35.0) % [place] % (Auto) (1.0-6.0) % Eos % (Auto) (1.5-5.0) % Baso % (Auto) (0.0-3.0) % Gran # (1.4-6.5) Lymph # (1.2-3.4) [place] # (0.1-0.6) Eos # (0.0-0.7) Baso # (0.0-2.0) K/mm3 PT (9.9-11.8) Seconds INR (0.93-1.08) APTT (23.7-30.8) Seconds pO2 (30-55) mm/Hg VBG pH (7.32-7.43) VBG pCO2 (40-60) VBG HCO3 (21-28) mmol/l VBG Total CO2 (22-28) mmol.L VBG O2 Sat (Calc) (40-65) % VBG Base Excess (0.0-2.0) mmol/L VBG Potassium (3.6-5.2) mmol/L Sodium (132-148) mmol/L Chloride (98-107) mmol/L Glucose (75-110) mg/dl Lactate (0.7-2.1) mmol/L FiO2 % Transferrin (206-381) mg/dL Troponin I 0.02 D ng/mL Venous Blood Potassium (3.6-5.2) mmol/L Urine Opiates Screen Negative (NEGATIVE) Urine Methadone Screen Negative (NEGATIVE) Ur Barbiturates Screen Negative (NEGATIVE) Ur Phencyclidine Scrn Negative (NEGATIVE) Ur Amphetamines Screen Negative (NEGATIVE) U Benzodiazepines Scrn Negative (NEGATIVE) U Oth Cocaine Metabols Negative (NEGATIVE) U Cannabinoids Screen Negative (NEGATIVE) Hepatitis A IgM Ab Negative (NEGATIVE) Hep Bs Antigen Negative (NEGATIVE) Hep B Core IgM Ab Negative (NEGATIVE) Hepatitis C Antibody Negative (NEGATIVE) Blood Type Confirm 01/13/17 01/13/17 01/13/17 Range/Units 18:00 18:00 18:00 WBC 11.3 H D (4.5-11.0) 10^3/ul RBC 2.30 L (3.5-6.1) 10^6/uL Hgb 7.4 L (14.0-18.0) g/dL Hct 21.6 L (42.0-52.0) % MCV 93.9 (80.0-105.0) fl MCH 32.2 (25.0-35.0) pg MCHC 34.3 (31.0-37.0) g/dl RDW 12.9 (11.5-14.5) % Plt Count 160 (120.0-450.0) 10^3/uL MPV 11.0 (7.0-11.0) fl Gran % 84.3 H (50.0-68.0) % Lymph % (Auto) 12.1 L (22.0-35.0) % [place] % (Auto) 3.5 (1.0-6.0) % Eos % (Auto) 0.0 L (1.5-5.0) % Baso % (Auto) 0.1 (0.0-3.0) % Gran # 9.50 H (1.4-6.5) Lymph # 1.4 (1.2-3.4) [place] # 0.4 (0.1-0.6) Eos # 0.0 (0.0-0.7) Baso # 0.01 (0.0-2.0) K/mm3 PT (9.9-11.8) Seconds INR (0.93-1.08) APTT (23.7-30.8) Seconds pO2 28 L (30-55) mm/Hg VBG pH 7.38 (7.32-7.43) VBG pCO2 41.0 (40-60) VBG HCO3 24.3 (21-28) mmol/l VBG Total CO2 25.6 (22-28) mmol.L VBG O2 Sat (Calc) 60.1 (40-65) % VBG Base Excess -0.8 L (0.0-2.0) mmol/L VBG Potassium 4.5 (3.6-5.2) mmol/L Sodium 140.0 (132-148) mmol/L Chloride 113.0 H (98-107) mmol/L Glucose 131 H (75-110) mg/dl Lactate 2.3 H (0.7-2.1) mmol/L FiO2 21.0 % Transferrin 214.40 (206-381) mg/dL Troponin I ng/mL Venous Blood Potassium 4.5 (3.6-5.2) mmol/L Urine Opiates Screen (NEGATIVE) Urine Methadone Screen (NEGATIVE) Ur Barbiturates Screen (NEGATIVE) Ur Phencyclidine Scrn (NEGATIVE) Ur Amphetamines Screen (NEGATIVE) U Benzodiazepines Scrn (NEGATIVE) U Oth Cocaine Metabols (NEGATIVE) U Cannabinoids Screen (NEGATIVE) Hepatitis A IgM Ab (NEGATIVE) Hep Bs Antigen (NEGATIVE) Hep B Core IgM Ab (NEGATIVE) Hepatitis C Antibody (NEGATIVE) Blood Type Confirm 01/13/17 01/13/17 Range/Units 14:17 14:10 WBC (4.5-11.0) 10^3/ul RBC (3.5-6.1) 10^6/uL Hgb (14.0-18.0) g/dL Hct (42.0-52.0) % MCV (80.0-105.0) fl MCH (25.0-35.0) pg MCHC (31.0-37.0) g/dl RDW (11.5-14.5) % Plt Count (120.0-450.0) 10^3/uL MPV (7.0-11.0) fl Gran % (50.0-68.0) % Lymph % (Auto) (22.0-35.0) % [place] % (Auto) (1.0-6.0) % Eos % (Auto) (1.5-5.0) % Baso % (Auto) (0.0-3.0) % Gran # (1.4-6.5) Lymph # (1.2-3.4) [place] # (0.1-0.6) Eos # (0.0-0.7) Baso # (0.0-2.0) K/mm3 PT 11.5 (9.9-11.8) Seconds INR 1.06 (0.93-1.08) APTT 23.1 L (23.7-30.8) Seconds pO2 (30-55) mm/Hg VBG pH (7.32-7.43) VBG pCO2 (40-60) VBG HCO3 (21-28) mmol/l VBG Total CO2 (22-28) mmol.L VBG O2 Sat (Calc) (40-65) % VBG Base Excess (0.0-2.0) mmol/L VBG Potassium (3.6-5.2) mmol/L Sodium (132-148) mmol/L Chloride (98-107) mmol/L Glucose (75-110) mg/dl Lactate (0.7-2.1) mmol/L FiO2 % Transferrin (206-381) mg/dL Troponin I ng/mL Venous Blood Potassium (3.6-5.2) mmol/L Urine Opiates Screen (NEGATIVE) Urine Methadone Screen (NEGATIVE) Ur Barbiturates Screen (NEGATIVE) Ur Phencyclidine Scrn (NEGATIVE) Ur Amphetamines Screen (NEGATIVE) U Benzodiazepines Scrn (NEGATIVE) U Oth Cocaine Metabols (NEGATIVE) U Cannabinoids Screen (NEGATIVE) Hepatitis A IgM Ab (NEGATIVE) Hep Bs Antigen (NEGATIVE) Hep B Core IgM Ab (NEGATIVE) Hepatitis C Antibody (NEGATIVE) Blood Type Confirm O POSITIVE Laboratory Results - last 24 hr 01/13/17 01/13/17 01/13/17 14:10 14:17 18:00 WBC RBC Hgb Hct MCV MCH MCHC RDW Plt Count MPV Gran % Lymph % (Auto) [place] % (Auto) Eos % (Auto) Baso % (Auto) Gran # Lymph # [place] # Eos # Baso # PT 11.5 INR 1.06 APTT 23.1 L pO2 VBG pH VBG pCO2 VBG HCO3 VBG Total CO2 VBG O2 Sat (Calc) VBG Base Excess VBG Potassium Sodium Chloride Glucose Lactate FiO2 Transferrin 214.40 Troponin I Venous Blood Potassium Urine Opiates Screen Urine Methadone Screen Ur Barbiturates Screen Ur Phencyclidine Scrn Ur Amphetamines Screen U Benzodiazepines Scrn U Oth Cocaine Metabols U Cannabinoids Screen Hepatitis A IgM Ab Hep Bs Antigen Hep B Core IgM Ab Hepatitis C Antibody Blood Type Confirm O POSITIVE 01/13/17 01/13/17 01/13/17 18:00 18:00 18:00 WBC 11.3 H D RBC 2.30 L Hgb 7.4 L Hct 21.6 L MCV 93.9 MCH 32.2 MCHC 34.3 RDW 12.9 Plt Count 160 MPV 11.0 Gran % 84.3 H Lymph % (Auto) 12.1 L [place] % (Auto) 3.5 Eos % (Auto) 0.0 L Baso % (Auto) 0.1 Gran # 9.50 H Lymph # 1.4 [place] # 0.4 Eos # 0.0 Baso # 0.01 PT INR APTT pO2 28 L VBG pH 7.38 VBG pCO2 41.0 VBG HCO3 24.3 VBG Total CO2 25.6 VBG O2 Sat (Calc) 60.1 VBG Base Excess -0.8 L VBG Potassium 4.5 Sodium 140.0 Chloride 113.0 H Glucose 131 H Lactate 2.3 H FiO2 21.0 Transferrin Troponin I 0.02 D Venous Blood Potassium 4.5 Urine Opiates Screen Urine Methadone Screen Ur Barbiturates Screen Ur Phencyclidine Scrn Ur Amphetamines Screen U Benzodiazepines Scrn U Oth Cocaine Metabols U Cannabinoids Screen Hepatitis A IgM Ab Hep Bs Antigen Hep B Core IgM Ab Hepatitis C Antibody Blood Type Confirm 01/13/17 01/13/17 01/14/17 18:00 19:57 00:10 WBC 9.3 RBC 2.29 L Hgb 7.4 L Hct 21.0 L MCV 91.7 MCH 32.3 MCHC 35.2 RDW 13.6 Plt Count 139 MPV 11.1 H Gran % 67.4 Lymph % (Auto) 25.4 [place] % (Auto) 6.2 H Eos % (Auto) 0.9 L Baso % (Auto) 0.1 Gran # 6.28 Lymph # 2.4 [place] # 0.6 Eos # 0.1 Baso # 0.01 PT INR APTT pO2 VBG pH VBG pCO2 VBG HCO3 VBG Total CO2 VBG O2 Sat (Calc) VBG Base Excess VBG Potassium Sodium Chloride Glucose Lactate FiO2 Transferrin Troponin I Venous Blood Potassium Urine Opiates Screen Negative Urine Methadone Screen Negative Ur Barbiturates Screen Negative Ur Phencyclidine Scrn Negative Ur Amphetamines Screen Negative U Benzodiazepines Scrn Negative U Oth Cocaine Metabols Negative U Cannabinoids Screen Negative Hepatitis A IgM Ab Negative Hep Bs Antigen Negative Hep B Core IgM Ab Negative Hepatitis C Antibody Negative Blood Type Confirm 01/14/17 01/14/17 00:10 11:00 WBC 8.9 RBC 2.92 L Hgb 9.2 L Hct 26.1 L MCV 89.4 MCH 31.5 MCHC 35.2 RDW 15.5 H Plt Count 140 MPV 11.5 H Gran % 72.1 H Lymph % (Auto) 19.3 L [place] % (Auto) 6.7 H Eos % (Auto) 1.7 Baso % (Auto) 0.2 Gran # 6.42 Lymph # 1.7 [place] # 0.6 Eos # 0.2 Baso # 0.02 PT INR APTT pO2 48 VBG pH 7.38 VBG pCO2 39.0 L VBG HCO3 23.1 VBG Total CO2 24.3 VBG O2 Sat (Calc) 88.2 H VBG Base Excess -1.8 L VBG Potassium 3.7 Sodium 136.0 Chloride 107.0 Glucose 141 H Lactate 4.3 H* FiO2 21.0 Transferrin Troponin I Venous Blood Potassium 3.7 Urine Opiates Screen Urine Methadone Screen Ur Barbiturates Screen Ur Phencyclidine Scrn Ur Amphetamines Screen U Benzodiazepines Scrn U Oth Cocaine Metabols U Cannabinoids Screen Hepatitis A IgM Ab Hep Bs Antigen Hep B Core IgM Ab Hepatitis C Antibody Blood Type Confirm Critical Care Progress Note - Nutrition Nutrition: Nutrition Category Date Time Status Liquid Diet [DIET] Diets 01/14/17 Lunch Ordered NPO Diet [DIET] Diets 01/15/17 Breakfast Ordered Attending/Attestation - Attestation I have personally seen and examined this patient.: Yes I have fully participated in the care of the patient.: Yes I have reviewed all pertinent clinical information: Yes Notes (Text): 01/14/17 14:17 46 y/o M w/ Melena Found to have multiple ulcers and gastritis post EGD. Currently without complaints and hemodyamically stable Continue to PPi daily, stop Octreotide. Advance diet unless Lower scope is scheduled. Monitor for alcohol withdrawl. Ativan PRN Electrolyte management. Keep HGB> 7. csd cc time 45 min
[2017-01-14] MEDS ORDERED: Propofol 10 mg/ml Inj (20 ML) ONE (09:10)
--- NOTE | 2017-01-14 09:48 | CT ---
PROCEDURE: CT Abdomen and Pelvis with contrast HISTORY: rule out perforated viscus COMPARISON: None. TECHNIQUE: Contrast dose: Omnipaque 240, 100 cc Radiation dose: Total exam DLP = 748.71 mGy-cm. This CT exam was performed using one or more of the following dose reduction techniques: Automated exposure control, adjustment of the mA and/or kV according to patient size, and/or use of iterative reconstruction technique. FINDINGS: LOWER THORAX: Unremarkable. LIVER: Unremarkable. No gross lesion or ductal dilatation. GALLBLADDER AND BILE DUCTS: Unremarkable. PANCREAS: Unremarkable. No gross lesion or ductal dilatation. SPLEEN: Unremarkable. ADRENALS: Unremarkable. No mass. KIDNEYS AND URETERS: Unremarkable. No hydronephrosis. No solid mass. VASCULATURE: Unremarkable. No aortic aneurysm. BOWEL: A few scattered diverticula are seen associated with the splenic flexure without diverticulitis at this time. No bowel obstruction is appreciated. The sigmoid colon is not fully distended there is difficult to exclude a limited amount of mural thickening at the proximal to mid sigmoid colon. Similar changes are questioned affecting the transverse and descending colon as well. No pericolic reaction is associated. Segmental colitis is not excluded. APPENDIX: Normal appendix. PERITONEUM: Unremarkable. No free fluid. No free air. LYMPH NODES: Unremarkable. No enlarged lymph nodes. BLADDER: Unremarkable. REPRODUCTIVE: Unremarkable. BONES: No acute fracture. OTHER FINDINGS: None. IMPRESSION: Questionable segmental colitis affecting the transverse through the sigmoid colon segments however the colon is not fully distended is limited evaluation secondarily. No pericolic reaction is evident. There is no ascites or free air. No overt CT sign of hollow viscus perforation. Further clinical correlation is advised. Limited splenic flexure diverticula without definite diverticulitis pattern evident.
[2017-01-14 11:51] LABS: BASO # 0.02 K/mm3 (0.0-2.0); BASO % 0.2 % (0.0-3.0); EOS # 0.2 (0.0-0.7); EOS % 1.7 % (1.5-5.0); GRAN # 6.42 (1.4-6.5); GRAN % 72.1 % (50.0-68.0); HEMATOCRIT 26.1 % (42.0-52.0); LYMPH # 1.7 (1.2-3.4); LYMPH % 19.3 % (22.0-35.0); MEAN CELL VOLUME 89.4 fl (80.0-105.0); MEAN CORPUSCULAR HEMOGLOBIN 31.5 pg (25.0-35.0); MEAN CORPUSCULAR HGB CONC 35.2 g/dl (31.0-37.0); MEAN PLATELET VOLUME 11.5 fl (7.0-11.0); MONO # 0.6 (0.1-0.6); MONO % 6.7 % (1.0-6.0); RED CELL DISTRIBUTION WIDTH 15.5 % (11.5-14.5); WHITE BLOOD COUNT 8.9 10^3/ul (4.5-11.0)
[2017-01-14] MEDS ORDERED: Peg-Electrolyte Oral Soln 4L (Golytely) PO ONE (13:00)
[2017-01-14] MEDS ORDERED: Bisacodyl 5mg EC Tab PO ONE (19:00)
--- NOTE | 2017-01-15 05:21 | PN ---
SUBJECTIVE: The patient is a 46-year-old male. The patient is seen and examined on the bedside. As per EGD, has no acute complaints. No nausea, vomiting, diarrhea. No headache, no dizziness. No palpitation, no shortness of breath, no hematemesis, no abdominal pain, no swelling of the legs. He received 4 units of packed RBCs and due to push enteroscopy and colonoscopy tomorrow 01/15, I saw this patient on 01/14 doing progress note for 01/14. PHYSICAL EXAMINATION VITAL SIGNS: Temperature is 98.2, pulse 70, respiratory rate 18, and blood pressure 120/72. HEENT: Head is normocephalic and atraumatic. Eyes, PERRLA. Extraocular muscles intact. Conjunctivae clear. Nose is patent. Mucous membrane moist. NECK: Supple. No carotid bruits. No JVD or thyromegaly. CHEST: Bilaterally symmetrical. HEART: S1 and S2 positive. LUNGS: Clear to auscultation. ABDOMEN: Soft. Bowel sounds positive. No organomegaly. EXTREMITIES: No edema. No cyanosis. NEUROLOGIC: The patient is awake and alert. Moving all 4 extremities. No focal deficit. MEDICATIONS: Protonix, NS, folic acid, octreotide, and lorazepam. LABORATORY DATA: White blood cell 9.3, hemoglobin 7.4, hematocrit 21, platelet 139. INR is 1.06, PT 11.5, APTT 23.1. ASSESSMENT AND PLAN: The patient is a 46-year-old male with history of ethanol abuse, came with melena. The patient has a history of ethanol, and with ethanol, he used Advil for 4 weeks for headache, came with melena. EGD shows grade B esophagitis, gastritis, the biopsies are done, CT of the abdomen and pelvis done on 01/13. The patient is getting Protonix, clear liquid diet, NPO after midnight, for push enteroscopy and colonoscopy by Dr. Delaney. Surgeon is Dr. Franco on board, SCD to lower extremities, seizure precautions. Hemodynamically stable. Continue PPI, stop octreotide. Advance diet as tolerated, alcohol withdrawal with Ativan, electrolyte imbalance. We will follow up. Lulu Chapa MD MTDD
[2017-01-15 07:34] LABS: BASO # 0.01 K/mm3 (0.0-2.0); BASO % 0.2 % (0.0-3.0); EOS # 0.1 (0.0-0.7); EOS % 1.6 % (1.5-5.0); GRAN # 3.68 (1.4-6.5); GRAN % 73.9 % (50.0-68.0); HEMATOCRIT 25.1 % (42.0-52.0); LYMPH % 19.5 % (22.0-35.0); MEAN CORPUSCULAR HEMOGLOBIN 30.9 pg (25.0-35.0); MEAN CORPUSCULAR HGB CONC 34.7 g/dl (31.0-37.0); MEAN PLATELET VOLUME 10.5 fl (7.0-11.0); MONO # 0.2 (0.1-0.6); MONO % 4.8 % (1.0-6.0); RED CELL DISTRIBUTION WIDTH 14.8 % (11.5-14.5)
[2017-01-15 08:00] LABS: ALB/GLOB RATIO 1.2 (1.1-1.8); ALKALINE PHOSPHATASE 54 U/L (38-126); ALT/SGPT 81 U/L (7-56); AST/SGOT 98 U/L (17-59); BILIRUBIN,TOTAL 0.3 mg/dL (0.2-1.3); BLOOD UREA NITROGEN 7 mg/dL (7-21); CALCIUM 8.2 mg/dL (8.4-10.5); CARBON DIOXIDE 30 mmol/L (21-33); CHLORIDE 104 mmol/L (98-107); GFR AFRICAN-AMERICAN > 60; GLUCOSE,RANDOM 89 mg/dL (70-110); MAGNESIUM 1.7 mg/dL (1.7-2.2); PHOSPHOROUS 3.6 mg/dL (2.5-4.5); POTASSIUM 3.5 mmol/L (3.6-5.0); SODIUM 138 mmol/L (132-148)
[2017-01-15] MEDS: Folic Acid 1 MG, Thiamine 100 MG, Multivitamin (MVI) 10 ML in Sodium Chloride 0.9% 1,00... IV SCH (10:25)
[2017-01-15] MEDS ORDERED: Sodium Chloride 0.9% 1,000 ML IV SCH (14:00)
[2017-01-15] MEDS ORDERED: Propofol 10 mg/ml Inj (20 ML) ONE ×2 (14:14→15:19)
[2017-01-15] MEDS ORDERED: Midazolam 2 MG/2 ML VIAL ONE (14:57)
--- NOTE | 2017-01-15 16:53 | CP.PCM.PN ---
Subjective - Date & Time of Evaluation Date of Evaluation: 01/15/17 Time of Evaluation: 17:00 - Subjective Subjective: Patient seen and examined at bedside. No acute events over night. S/p colonoscopy. No complaints. Objective - Vital Signs/Intake and Output Vital Signs (last 24 hours): Temp Pulse Resp BP Pulse Ox 98.8 F 55 L 17 132/74 100 01/15/17 16:12 01/15/17 16:12 01/15/17 16:12 01/15/17 16:12 01/15/17 16:12 Intake and Output: 01/15/17 01/15/17 06:59 18:59 Intake Total 75 Output Total 1200 Balance -1125 - Medications Medications: Current Medications Folic Acid 1 mg/ Thiamine HCl 100 mg/ Multivitamins/Vitamin C 10 ml/ Sodium Chloride 1,011.2 mls @ 100 mls/hr IV .Q10H7M [facility] Last Admin: 01/15/17 10:25 Dose: 100 mls/hr Lorazepam (Ativan) 1 mg IVP Q6H PRN; Protocol PRN Reason: Anxiety Pantoprazole Sodium (Protonix Inj) 40 mg IVP DAILY [facility] Last Admin: 01/15/17 09:20 Dose: 40 mg - Labs Labs: 01/15/17 07:25 01/15/17 07:25 PT 11.5 Seconds (9.9-11.8) 01/13/17 14:10 INR 1.06 (0.93-1.08) 01/13/17 14:10 APTT 23.1 Seconds (23.7-30.8) L 01/13/17 14:10 - Constitutional Appears: No Acute Distress - Head Exam Head Exam: NORMOCEPHALIC - Eye Exam Eye Exam: Normal appearance - ENT Exam ENT Exam: Mucous Membranes Moist - Respiratory Exam Respiratory Exam: NORMAL BREATHING PATTERN - Cardiovascular Exam Cardiovascular Exam: +S1, +S2 - GI/Abdominal Exam GI & Abdominal Exam: Soft. absent: Distended, Firm, Guarding, Rigid, Tenderness - Neurological Exam Neurological Exam: Alert, Awake, Oriented x3 - Psychiatric Exam Psychiatric exam: Normal Mood - Skin Skin Exam: Dry, Intact, Warm Assessment and Plan - Assessment and Plan (Free Text) Assessment: 46M w/ melena likely 2/2 ascending colon mass found on colonosopy Plan: -F/u GI recs -F/u pathology -C/w analgesics -Monitor vitals -Follow up AM labs d/w Dr. Salvador Galvan PGY-2
--- NOTE | 2017-01-16 01:36 | PN ---
SUBJECTIVE: The patient is a 46-year-old male. The patient was seen and examined at the bedside, n.p.o., was getting ready to go for push enteroscopy and colonoscopy. No nausea, vomiting, or diarrhea. No hematuria or hematochezia. No headache, no dizziness. No chest pain, no palpitation. Looks a little bit anxious. PHYSICAL EXAMINATION VITAL SIGNS: Temperature 98.8, pulse 55, respiratory rate 17, blood pressure 113/74, pulse oximetry 100%. HEENT: Head is normocephalic and atraumatic. Eyes, PERRLA. Extraocular muscles intact. Conjunctivae clear. Nose patent. Mucous membranes moist. NECK: Supple. No carotid bruits. No thyromegaly. CHEST: Bilaterally symmetrical. HEART: S1, S2 positive. LUNGS: Clear to auscultation. ABDOMEN: Soft. Bowel sounds present. No organomegaly. EXTREMITIES: No edema, no cyanosis. NEUROLOGIC: The patient is awake, alert. Moving all 4 extremities. No focal deficits. LABORATORY DATA: White blood cells 5.0, hemoglobin 8.7, hematocrit 25.1, platelets 115. Sodium 138, potassium 3.5, BUN 7, creatinine 0.9, glucose 89. MEDICATIONS: Banana bag, Ativan, Protonix. ASSESSMENT AND PLAN: The patient is a 46-year-old male with anemia, thrombocytopenia, hypokalemia, history of ethanol abuse, came with melena, has ascending colon mass, found on colonoscopy, severe anemia, got blood transfusion, was admitted in the unit. Now, on the medical floor. Follow with GI series and pathology, analgesics, monitor vitals and H and H, as per surgery. The patient's surgery scheduling coordinator is Dr. Sonny Tran. Today, the patient went for esophagogastroduodenoscopy, showed grade B esophagitis, erosive gastritis, duodenitis, duodenal ulcer. Procedure was done Dr. Maurizio Camarena. The patient went for colonoscopy also, shows diverticulosis and hemorrhoids, ascending colon polyp. Colonoscopy done by Dr. Sonny Tran. GI and DVT prophylaxis. Repeat labs. Ortho bed, physical therapy. Lulu Chapa MD
[2017-01-16 07:45] LABS: BASO # 0.01 K/mm3 (0.0-2.0); BASO % 0.2 % (0.0-3.0); EOS # 0.1 (0.0-0.7); EOS % 1.4 % (1.5-5.0); GRAN # 3.9 (1.4-6.5); HEMATOCRIT 25.5 % (42.0-52.0); LYMPH # 1.2 (1.2-3.4); LYMPH % 21.9 % (22.0-35.0); MEAN CELL VOLUME 90.4 fl (80.0-105.0); MEAN CORPUSCULAR HEMOGLOBIN 31.6 pg (25.0-35.0); MEAN CORPUSCULAR HGB CONC 34.9 g/dl (31.0-37.0); MEAN PLATELET VOLUME 10.6 fl (7.0-11.0); MONO # 0.4 (0.1-0.6); MONO % 6.5 % (1.0-6.0); RED CELL DISTRIBUTION WIDTH 14.7 % (11.5-14.5); WHITE BLOOD COUNT 5.6 10^3/ul (4.5-11.0)
--- NOTE | 2017-01-16 10:02 | CP.PCM.PN ---
<Keiry Silver - Last Filed: 01/16/17 09:58> Subjective - Date & Time of Evaluation Date of Evaluation: 01/16/17 Time of Evaluation: 09:58 - Subjective Subjective: Gastroenterology Fellow/PGY5 Progress Note Patient feels well. Denies melena or hematochezia. has had brown stool in last 24 hours. Tolerating regular diet. A 12-point review of systems negative except for as above. Objective - Vital Signs/Intake and Output Vital Signs (last 24 hours): Temp Pulse Resp BP Pulse Ox 98.3 F 70 20 125/62 100 01/16/17 08:00 01/16/17 08:00 01/16/17 08:00 01/16/17 08:00 01/16/17 08:00 Intake and Output: 01/16/17 01/16/17 06:59 18:59 Intake Total 2400 600 Output Total 300 Balance 2400 300 - Medications Medications: Current Medications Folic Acid 1 mg/ Thiamine HCl 100 mg/ Multivitamins/Vitamin C 10 ml/ Sodium Chloride 1,011.2 mls @ 100 mls/hr IV .Q10H7M [facility] Last Admin: 01/15/17 10:25 Dose: 100 mls/hr Lorazepam (Ativan) 1 mg IVP Q6H PRN; Protocol PRN Reason: Anxiety Pantoprazole Sodium (Protonix Inj) 40 mg IVP DAILY [facility] Last Admin: 01/15/17 09:20 Dose: 40 mg - Labs Labs: 01/16/17 07:39 01/15/17 07:25 PT 11.5 Seconds (9.9-11.8) 01/13/17 14:10 INR 1.06 (0.93-1.08) 01/13/17 14:10 APTT 23.1 Seconds (23.7-30.8) L 01/13/17 14:10 - Constitutional Appears: Non-toxic, No Acute Distress - Head Exam Head Exam: ATRAUMATIC, NORMOCEPHALIC - Eye Exam Eye Exam: EOMI, PERRL Pupil Exam: PERRL. absent: Miosis, Mydriatic - ENT Exam ENT Exam: Mucous Membranes Moist, Normal Oropharynx - Neck Exam Neck Exam: Full ROM, Normal Inspection - Respiratory Exam Respiratory Exam: Clear to Ausculation Bilateral. absent: Rales, Rhonchi, Wheezes - Cardiovascular Exam Cardiovascular Exam: RRR, +S1, +S2. absent: Gallop, Rubs - GI/Abdominal Exam GI & Abdominal Exam: Soft, Normal Bowel Sounds. absent: Distended, Firm, Guarding, Rigid, Tenderness, Organomegaly, Rebound - Extremities Exam Extremities Exam: Normal Inspection. absent: Pedal Edema - Neurological Exam Neurological Exam: Alert, Awake - Psychiatric Exam Psychiatric exam: Normal Affect, Normal Mood - Skin Skin Exam: Dry, Intact, Normal Color, Warm Assessment and Plan - Assessment and Plan (Free Text) Assessment: 46 year old male with no prior medical history presenting with epigastric pain and black stools. Active treatment of symptomatic anemia secondary to GI bleed s /p 4U pRBCs, POD 2 (01/14) EGD showing superficial duodenal ulcers (Nathan classification III), erosive gastrtiis, and LAGB esophagitis and POD1 (01/15) colonoscopy showing descending/sigmoid diverticulosis, 20mm ascending semi- pedunculated polyp s/p polypectomy and hemoclip with semi-liquid stool throughout entire colon. No prior EGD or colonoscopy. Plan: >H/H stable >continue regular diet >continue PPI BID for 1 month >counselled on alcohol and NSAIDs cessation >follow up with Dr. Tran in 2 weeks to re-assess H/H, clinical status, and complete liver workup >okay to discharge from GI standpoint >thank you for opportunity to participate in the care of this patient <Dieog Hooper - Last Filed: 01/16/17 10:14> Objective - Vital Signs/Intake and Output Vital Signs (last 24 hours): Temp Pulse Resp BP Pulse Ox 98.3 F 70 20 125/62 100 01/16/17 08:00 01/16/17 08:00 01/16/17 08:00 01/16/17 08:00 01/16/17 08:00 Intake and Output: 01/16/17 01/16/17 06:59 18:59 Intake Total 2400 600 Output Total 300 Balance 2400 300 - Medications Medications: Current Medications Folic Acid 1 mg/ Thiamine HCl 100 mg/ Multivitamins/Vitamin C 10 ml/ Sodium Chloride 1,011.2 mls @ 100 mls/hr IV .Q10H7M [facility] Last Admin: 01/15/17 10:25 Dose: 100 mls/hr Lorazepam (Ativan) 1 mg IVP Q6H PRN; Protocol PRN Reason: Anxiety Pantoprazole Sodium (Protonix Inj) 40 mg IVP DAILY [facility] Last Admin: 01/15/17 09:20 Dose: 40 mg - Labs Labs: 01/16/17 07:39 01/15/17 07:25 PT 11.5 Seconds (9.9-11.8) 01/13/17 14:10 INR 1.06 (0.93-1.08) 01/13/17 14:10 APTT 23.1 Seconds (23.7-30.8) L 01/13/17 14:10 Attending/Attestation - Attestation I have personally seen and examined this patient.: Yes I have fully participated in the care of the patient.: Yes I have reviewed all pertinent clinical information, including history, physical exam and plan: Yes Notes (Text): 01/16/17 10:10 I have seen and examined patient with GI fellow. No acute events overnight, he is seen sitting in chair, appears quite comfortable. He complains of ongoing fatigue but denies abdominal pain, nausea, vomiting, fever/chills. He had a normal brown colored bowel movement yesterday and is tolerating PO diet without difficulty. Review of vitals from today are normal. Symptomatic anemia, s/p EGD and colonoscopy showing superficial duodenal ulcers , erosive esophagitis, sigmoid diverticulosis, and large ascending colon polyp ETOH abuse, transaminitis - Diet as tolerated - H/H stable, continue to monitor - Awaiting biopsy results from EGD/colonoscopy - Continue with PPI, can change to PO twice daily - NSAID and ETOH avoidance - LFTs stable, continue to monitor - viral hepatitis panel negative - From GI standpoint ok to discharge patient home with subsequent outpatient follow up. Will sign off case, please reconsult as necessary, thank you.
--- NOTE | 2017-01-16 10:26 | CP.PCM.PN ---
Subjective - Date & Time of Evaluation Date of Evaluation: 01/16/17 Time of Evaluation: 06:45 - Subjective Subjective: Patient seen and examined this morning. No acute events over night. Denies n/v, and abdominal pain. +BM. Hgb stable. Objective - Vital Signs/Intake and Output Vital Signs (last 24 hours): Temp Pulse Resp BP Pulse Ox 98.3 F 70 20 125/62 100 01/16/17 08:00 01/16/17 08:00 01/16/17 08:00 01/16/17 08:00 01/16/17 08:00 Intake and Output: 01/16/17 01/16/17 06:59 18:59 Intake Total 2400 600 Output Total 300 Balance 2400 300 - Medications Medications: Current Medications Folic Acid 1 mg/ Thiamine HCl 100 mg/ Multivitamins/Vitamin C 10 ml/ Sodium Chloride 1,011.2 mls @ 100 mls/hr IV .Q10H7M [facility] Last Admin: 01/15/17 10:25 Dose: 100 mls/hr Lorazepam (Ativan) 1 mg IVP Q6H PRN; Protocol PRN Reason: Anxiety Pantoprazole Sodium (Protonix Inj) 40 mg IVP DAILY [facility] Last Admin: 01/16/17 10:19 Dose: 40 mg - Labs Labs: 01/16/17 07:39 01/15/17 07:25 PT 11.5 Seconds (9.9-11.8) 01/13/17 14:10 INR 1.06 (0.93-1.08) 01/13/17 14:10 APTT 23.1 Seconds (23.7-30.8) L 01/13/17 14:10 - Constitutional Appears: No Acute Distress - Head Exam Head Exam: NORMOCEPHALIC - Eye Exam Eye Exam: Normal appearance - ENT Exam ENT Exam: Mucous Membranes Moist - Respiratory Exam Respiratory Exam: NORMAL BREATHING PATTERN - Cardiovascular Exam Cardiovascular Exam: +S1, +S2 - GI/Abdominal Exam GI & Abdominal Exam: Soft - Neurological Exam Neurological Exam: Alert, Awake, Oriented x3 - Psychiatric Exam Psychiatric exam: Normal Mood - Skin Skin Exam: Dry, Intact, Warm Assessment and Plan - Assessment and Plan (Free Text) Assessment: 46M w/ symptomatic anemia and melena likely 2/2 ascending colon mass found on colonoscopy -F/u pathology results -No acute surgical intervention at this time -F/u GI recs -Further recs per Dr. Salvador Galvan PGY-2
[2017-01-16] MEDS: Folic Acid 1 MG, Thiamine 100 MG, Multivitamin (MVI) 10 ML in Sodium Chloride 0.9% 1,00... IV SCH ×2 (12:32→21:31)
--- NOTE | 2017-01-16 19:31 | PN ---
DATE: Jason Barbosa seen on the floor. He has bleeding with melanotic stools. There is a sessile polyp in the colon and multiple ulcers in the stomach. The biopsy from the stomach was pretty much negative for the inflammation. report from yesterday showed a 2-cm polyp of the ascending colon, semi-pedunculated. Polyp was removed with a snare; otherwise, unremarkable. Pending pathology, we will move forward but more than likely if it is benign. The patient, I believe, should be discharged soon. Narciso Franco MD
--- NOTE | 2017-01-17 06:23 | PN ---
DATE: SUBJECTIVE: The patient is a 46-year-old male. The patient is seen and examined on the bedside, looking comfortable. No nausea, vomiting or diarrhea. No hematuria or hematochezia. No swelling of the leg. No chest pain. No palpitations. No headache. No dizziness. PHYSICAL EXAMINATION VITAL SIGNS: Temperature is 98.1, pulse 67, blood pressure 138/114, before that it was 125/62, 152/105 and respiratory rate 18. HEENT: Head is normocephalic and atraumatic. Eyes, PERRLA. Extraocular muscles intact. Conjunctivae clear. Nose is patent. Mucous membrane moist. NECK: Supple. No carotid bruits. No JVD or thyromegaly. CHEST: Bilaterally symmetrical. HEART: S1 and S2 positive. LUNGS: Clear to auscultation. ABDOMEN: Soft. Bowel sounds positive. No organomegaly. EXTREMITIES: No edema. No cyanosis. NEUROLOGIC: The patient is awake and alert. Moving all 4 extremities. No focal deficit. MEDICATIONS: Ativan, banana bag, Protonix. LABORATORY DATA: White blood cell 8.6, hemoglobin 8.9, hematocrit 25.5, platelets 143. Sodium 138, potassium 3.5, BUN 7, creatinine 0.9, calcium 8.2. AST 98, ALT 81. ASSESSMENT AND PLAN: 1. The patient is 46-year-old male with multiple medical problems, history of leukocytosis, improved, anemia, hypokalemia, replaced, hypocalcemia, abnormal liver function test, drug screen negative. Hepatitis C is negative. Seen by Dr. Diego Hooper, Pharmaceutical Physician, history of lower gastrointestinal bleeding, anemia secondary to gastrointestinal bleeding, got 4 units packed RBCs. EGD shows duodenal ulcers, 3 erosive gastritis, non-esophagitis and polycystic ovarian disease. 2. Colonoscopy showing descending sigmoid diverticulosis, 20-mm ascending semi pedunculated polyp , liquid stool throughout the entire colon. No prior EGD or colonoscopy for comparison. Seen by Dr. Franco, surgeon. Biopsy of the stomach was routine margin negative for the inflammation. Polyps biopsy pending. GI/DVT prophylaxis. Repeat labs. We will follow. Lulu Chapa MD MITZY
[2017-01-17 07:59] VITALS: BP 120/71; PULSE 76; RESP 19; TEMP 98.7; O2SAT 96
[2017-01-17] MEDS ORDERED: Calcium-Vit D 250 mg-125 Units Tab UD PO SCH (10:00)
--- NOTE | 2017-01-18 06:08 | DS ---
CHIEF COMPLAINT: Abdominal pain, nausea, lightheadedness, and diaphoresis. HISTORY OF PRESENT ILLNESS: Mr. Rizwan Barbosa is a 46-year-old male with nonsignificant past medical history came to the emergency room for epigastric abdominal pain, some nausea, lightheadedness, diaphoresis, and some chest pain. No fever and no chills. We admitted the patient, did CAT scan of the abdomen and pelvis. Chest x-ray, upper endoscopy done, seen by Dr. Salvador Stuart because of abdominal pain, Dr. Rufus Cortez, Gastroenterology. The patient admitted in the unit, seen by child specialist Dr. Ayah Morrow and Dr. Ernesto Pappas child specialist, got better. Blood transfusion given, improved, food given, tolerated, and discharging home today with prescription medication and paper to go back to work. PAST MEDICAL HISTORY: Nonsignificant. FAMILY HISTORY: Father and mother noncontributory. ALLERGIES: THE PATIENT IS NOT ALLERGIC WITH ANY MEDICATION. REVIEW OF SYSTEMS: The patient seen and examined on the bedside, looking comfortable. Tolerated the food. No fever and no chills. No nausea, vomiting, or diarrhea. No hematuria or hematochezia. No swelling of the legs. No chest pain and no palpitation. PHYSICAL EXAMINATION: VITAL SIGNS: Temperature 98.7, pulse 76, blood pressure 120/70 and respiratory rate 19. HEENT: Head normocephalic and atraumatic. Eyes; PERRLA. Extraocular muscles intact. Conjunctivae clear. Nose patent. NECK: Supple. No carotid bruit. No JVD or thyromegaly. CHEST: Bilaterally symmetrical. HEART: S1 and S2 positive. LUNGS: Clear to auscultation. ABDOMEN: Soft and nontender. No organomegaly. EXTREMITIES: No edema. No cyanosis. NEUROLOGIC: The patient is awake and alert. Moving all 4 extremities. No focal deficits. MEDICATIONS GIVEN IN THE HOSPITAL: Ativan, banana bag, NS, vitamin D, and pantoprazole drip. LABORATORY DATA: White blood cells 5.6, hemoglobin 8.9, on admission it was 7.5, hematocrit 25.1, and platelets 143. Sodium 138, potassium 3.5, BUN 7, creatinine 0.9, and calcium 8.2. ASSESSMENT AND PLAN: Mr. Rizwan Barbosa is a 46-year-old male, came with symptomatic anemia, hemoglobin was 7.5, blood transfusion given, now recent hemoglobin is 8.7, 8.9, hypokalemia, hypocalcemia, calcium supplement given, and abnormal liver function tests. We will repeat as an outpatient. Toxicology negative. Hepatitis serology negative. Leukocytosis improved. Seen by Dr. Rufus Cortez, Circulation Clerk, history of gastrointestinal bleeding, anemia secondary to gastrointestinal bleeding, got 4 units of packed red blood cells, EGD shows duodenal ulcers 3, erosive gastritis, and esophagitis. Colonoscopy shows diverticulosis, 20-mm semi-pedunculated polyp removed. No prior EGD or colonoscopy for comparison. Seen by the surgeon. Biopsy done of the stomach. Biopsy margins are negative for malignancy. Polyps biopsy is pending. The patient was anxious to go home. Discharge after GI clearance. We will follow up in my office on Thursday and we will follow up with Circulation Clerk. The patient is informed that if epigastric pain will come back or bleeding will get back to come back to ER. Lulu Chapa MD
== END 2017-01-17 13:07 | disposition home or self-care (01) | DRG 394 ==
LOC: ED 11:38 → ERH 14:03 → CCU 19:13 → 5RSO 01-15 04:17
PROVIDERS: ADMIT Internal Medicine; ATTEND Internal Medicine
PROC: 30233N1 Transfusion of Nonautologous Red Blood Cells into Peripheral Vein, Percutaneous Approach (ICD-10-PCS; 2017-01-13)
PROC: 0DB98ZX Excision of Duodenum, Via Natural or Artificial Opening Endoscopic, Diagnostic (ICD-10-PCS; 2017-01-14)
PROC: 0DB68ZX Excision of Stomach, Via Natural or Artificial Opening Endoscopic, Diagnostic (ICD-10-PCS; 2017-01-14)
PROC: 0D5K8ZZ Destruction of Ascending Colon, Via Natural or Artificial Opening Endoscopic (ICD-10-PCS; principal; 2017-01-15 12:00)
DX: D12.2 Benign neoplasm of ascending colon (principal); D62 Acute posthemorrhagic anemia; E87.8 Other disorders of electrolyte and fluid balance, not elsewhere classified; D69.6 Thrombocytopenia, unspecified; K26.9 Duodenal ulcer, unspecified as acute or chronic, without hemorrhage or perforation; F10.239 Alcohol dependence with withdrawal, unspecified; E83.51 Hypocalcemia; E87.6 Hypokalemia; K21.0 Gastro-esophageal reflux disease with esophagitis; K57.30 Diverticulosis of large intestine without perforation or abscess without bleeding; D50.0 Iron deficiency anemia secondary to blood loss (chronic); Z80.0 Family history of malignant neoplasm of digestive organs; K29.80 Duodenitis without bleeding; K64.9 Unspecified hemorrhoids; K29.50 Unspecified chronic gastritis without bleeding; B96.81 Helicobacter pylori [H. pylori] as the cause of diseases classified elsewhere; R40.2412 Glasgow coma scale score 13-15, at arrival to emergency department; R74.0 Nonspecific elevation of levels of transaminase and lactic acid dehydrogenase [LDH]; D72.829 Elevated white blood cell count, unspecified

== ENCOUNTER 2017-03-22 08:07 | Emergency (ER) | payer BC ==
[2017-03-22 08:25] VITALS: TEMP 98.8
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
[2017-03-22 09:24] LABS: BASO # 0.02 K/mm3 (0.0-2.0); BASO % 0.4 % (0.0-3.0); EOS # 0.1 (0.0-0.7); EOS % 1.4 % (1.5-5.0); GRAN # 3.07 (1.4-6.5); GRAN % 62.8 % (50.0-68.0); LYMPH # 1.5 (1.2-3.4); LYMPH % 30.3 % (22.0-35.0); MEAN CELL VOLUME 86.3 fl (80.0-105.0); MEAN CORPUSCULAR HEMOGLOBIN 29.5 pg (25.0-35.0); MEAN CORPUSCULAR HGB CONC 34.2 g/dl (31.0-37.0); MEAN PLATELET VOLUME 10.8 fl (7.0-11.0); MONO # 0.3 (0.1-0.6); MONO % 5.1 % (1.0-6.0); RED CELL DISTRIBUTION WIDTH 13.8 % (11.5-14.5); URINE BILIRUBIN NEGATIVE (NEGATIVE); URINE BLOOD TRACE-INTACT (NEGATIVE); URINE GLUCOSE (UA) NEGATIVE (NEGATIVE); URINE KETONE NEGATIVE (NEGATIVE); URINE LEUKOCYTE ESTERASE NEGATIVE Leu/uL (NEGATIVE); URINE PROTEIN TRACE mg/dL (<30 mg/dL); URINE UROBILINOGEN 0.2 E.U./dL (<1 E.U./dL); WHITE BLOOD COUNT 4.9 10^3/ul (4.5-11.0)
[2017-03-22 09:27] LABS: URINE APPEARANCE CLEAR (CLEAR); URINE COLOR YELLOW (YELLOW)
[2017-03-22 09:35] LABS: ALB/GLOB RATIO 1.3 (1.1-1.8); ALKALINE PHOSPHATASE 92 U/L (38-126); ALT/SGPT 53 U/L (7-56); AST/SGOT 55 U/L (17-59); BILIRUBIN,TOTAL 0.5 mg/dL (0.2-1.3); BLOOD UREA NITROGEN 14 mg/dL (7-21); CALCIUM 9.4 mg/dL (8.4-10.5); CARBON DIOXIDE 24 mmol/L (21-33); CHLORIDE 106 mmol/L (98-107); GFR AFRICAN-AMERICAN > 60; GLUCOSE,RANDOM 97 mg/dL (70-110); LIPASE 124 U/L (23-300); POTASSIUM 4.4 mmol/L (3.6-5.0); SODIUM 142 mmol/L (132-148); TOTAL PROTEIN 8.2 g/dL (5.8-8.3)
[2017-03-22 09:39] LABS: URINE RBC 0 - 2 /hpf (0-2); URINE WBC 0 - 2 /hpf (0-6)
[2017-03-22 09:40] LABS: URINE BACTERIA SMALL (NEG)
[2017-03-22] MEDS ORDERED: Iohexol 350 MG/100 ML VIAL ONE (10:26)
--- NOTE | 2017-03-22 12:19 | CT ---
PROCEDURE: CT Abdomen and Pelvis with contrast HISTORY: abd pain COMPARISON: None. TECHNIQUE: Contrast dose: 100 cc of Omni 350 Radiation dose: Total exam DLP = 590 mGy-cm. This CT exam was performed using one or more of the following dose reduction techniques: Automated exposure control, adjustment of the mA and/or kV according to patient size, and/or use of iterative reconstruction technique. FINDINGS: LOWER THORAX: Unremarkable. LIVER: Unremarkable. No gross lesion or ductal dilatation. GALLBLADDER AND BILE DUCTS: Unremarkable. PANCREAS: Unremarkable. No gross lesion or ductal dilatation. SPLEEN: Unremarkable. ADRENALS: Unremarkable. No mass. KIDNEYS AND URETERS: Unremarkable. No hydronephrosis. No solid mass. VASCULATURE: Unremarkable. No aortic aneurysm. BOWEL: Unremarkable. No obstruction. No gross mural thickening. APPENDIX: Normal appendix. PERITONEUM: Unremarkable. No free fluid. No free air. LYMPH NODES: Unremarkable. No enlarged lymph nodes. BLADDER: Unremarkable. REPRODUCTIVE: Unremarkable. BONES: No acute fracture. OTHER FINDINGS: None. IMPRESSION: Unremarkable contrast enhanced CT of the abdomen and pelvis.
[2017-03-22 12:32] VITALS: BP 142/85; PULSE 78; RESP 18; O2SAT 100
== END 2017-03-22 12:30 | disposition home or self-care (01) ==
LOC: ED 08:07
DX: R10.9 Unspecified abdominal pain (principal)
CPT/HCPCS: 74177; 80053; 81001; 83690; 85025; 99284; Q9967

== ENCOUNTER 2017-07-20 14:05 | Emergency (ER) | payer BC ==
[2017-07-20 14:32] VITALS: TEMP 98.8
--- NOTE | 2017-07-20 15:26 | ED PDOC ---
Arrival/HPI - General Chief Complaint: Lower Extremity Problem/Injury Time Seen by Provider: 07/20/17 14:39 Historian: Patient, Spouse - History of Present Illness Narrative History of Present Illness (Text): 07/20/17 15:00 This 47 yo male presents to this ED c/o right groin pain x 1 day. Patient pain is worsen with movement or palpation. Patient denies fever, trauma, recent fall , recent surgery, sick contact, dysuria, hematuria, penile discharge, dizziness , skin rash, or abnormal gait. Time/Duration: Other (see hpi) Context: Home Past Medical History - Provider Review Nursing Documentation Reviewed: Yes - Infectious Disease Hx of Infectious Diseases: None - Cardiac Hx Cardiac Disorders: No - Pulmonary Hx Respiratory Disorders: No - Neurological Hx Neurological Disorder: No HX Cerebrovascular Accident: No - HEENT Hx HEENT Disorder: No - Renal Hx Renal Disorder: No - Endocrine/Metabolic Hx Endocrine Disorders: No - Hematological/Oncological Hx Blood Disorders: Yes Hx Blood Transfusions: Yes Hx Blood Transfusion Reaction: No - Integumentary Hx Dermatological Disorder: No - Musculoskeletal/Rheumatological Hx Musculoskeletal Disorders: No - Gastrointestinal Hx Gastrointestinal Disorders: Yes Hx Gastrointestinal Ulcer: Yes - Genitourinary/Gynecological Hx Genitourinary Disorders: No - Psychiatric Hx Psychophysiologic Disorder: No Hx Substance Use: No - Surgical History Other/Comment: CHEST TUBE, ABD R/T ULCERS - Anesthesia Hx Anesthesia: Yes Hx Anesthesia Reactions: No Hx Malignant Hyperthermia: No Family/Social History - Physician Review Nursing Documentation Reviewed: Yes Family/Social History: Other (noncontributory) Smoking Status: Never Smoked Hx Alcohol Use: Yes Frequency of alcohol use: Daily Hx Substance Use: No Allergies/Home Meds Allergies/Adverse Reactions: Allergies No Known Allergies Allergy (Verified 07/20/17 14:23) Review of Systems - Review of Systems Constitutional: Normal. absent: Fatigue, Weight Change, Fevers Eyes: Normal ENT: Normal Respiratory: Normal Cardiovascular: Normal Gastrointestinal: Normal Genitourinary Male: Normal Musculoskeletal: Other (right groin pain) Skin: Normal Neurological: Normal Endocrine: Normal Hemo/Lymphatic: Normal Psychiatric: Normal Physical Exam Vital Signs Temp Pulse Resp BP Pulse Ox 07/20/17 14:23 98.8 F 79 16 160/117 H 95 Temperature: Afebrile Blood Pressure: Normal Pulse: Regular Respiratory Rate: Normal Appearance: Positive for: Well-Appearing, Non-Toxic, Comfortable Pain Distress: None Mental Status: Positive for: Alert and Oriented X 3 - Systems Exam Head: Present: Atraumatic, Normocephalic Pupils: Present: PERRL Extroacular Muscles: Present: EOMI Conjunctiva: Present: Normal Mouth: Present: Moist Mucous Membranes Abdomen: No: Tenderness, Distention, Rebound, Guarding Genitourinary Male: Present: Normal External Genitalia, Circumcised Penis. No: Lesions, Penile Discharge, Testicle Tenderness, Penile Swelling, Masses, Erythema, Hernias, Testicle Swelling Back: Present: Normal Inspection. No: CVA Tenderness Upper Extremity: Present: Normal Inspection, Normal ROM Lower Extremity: Present: Normal Inspection, Normal ROM Neurological: Present: GCS=15, CN II-XII Intact, Speech Normal, Motor Func Grossly Intact, Normal Sensory Function, Normal Cerebellar Funct, Gait Normal Skin: Present: Warm, Dry, Normal Color. No: Rashes Lymphatic: Present: Inguinal Adenopathy. No: Cervical Adenopathy, Axillary Adenopathy Psychiatric: Present: Alert, Oriented x 3, Normal Insight, Normal Concentration Medical Decision Making ED Course and Treatment: 07/20/17 16:29 Re-evaluation. Patient feels better. Discussed results and plan with patient who expresses understanding. All questions answered and there is agreement with the plan to discharge home with instructions. Patient stable for discharge. Return if symptoms persist or worsen. Patient was recommended to f/u pmd in 2-3 days to review urine culture, and std test result. Patient denies std exposure, penile discharge or testicular pain. Patient was recommended to return to ED if symptoms worsen. Re-evaluation Time: 16:30 Reassessment Condition: Re-examined, Improved - Lab Interpretations Lab Results: Lab Results 07/20/17 15:40: Urine Color Yellow, Urine Appearance Clear, Urine pH 6.0, Ur Specific [place] >= 1.030, Urine Protein Negative, Urine Glucose (UA) Negative, Urine Ketones Trace H, Urine Blood Trace-intact H, Urine Nitrate Negative, Urine Bilirubin Negative, Urine Urobilinogen 0.2, Ur Leukocyte Esterase Negative , Urine RBC 1 - 3, Urine WBC 0 - 2, Ur Epithelial Cells 0 - 2, Urine Bacteria None 07/20/17 15:21: POC Glucose (mg/dL) 62 L I have reviewed the lab results: Yes Interpretation: No clinic. lab abnormalty (pending STD and urine Cx. tests) - RAD Interpretation Radiology Orders: 07/20/17 15:20 Hip Right [HIP MIN 2V W/ PELVIS RT] [RAD] Stat - Medication Orders Current Medication Orders: Ceftriaxone Sodium (Rocephin) 250 mg IM STAT STA PRN Reason: Protocol Stop: 07/20/17 16:28 Discontinued Medications Ibuprofen (Motrin Tab) 600 mg PO STAT STA Stop: 07/20/17 15:23 Last Admin: 07/20/17 16:03 Dose: 600 mg Disposition/Present on Arrival - Present on Arrival Any Indicators Present on Arrival: No History of DVT/PE: No History of Uncontrolled Diabetes: No Urinary Catheter: No History of Decub. Ulcer: No History Surgical Site Infection Following: None - Disposition Have Diagnosis and Disposition been Completed?: Yes Diagnosis: Groin pain Disposition: HOME/ ROUTINE Disposition Time: 16:31 Patient Plan: Discharge Patient Problems: Current Active Problems Problem Status Onset Groin pain Acute Condition: GOOD Discharge Instructions (ExitCare): Groin Strain (DC) Additional Instructions: Call private doctor for follow up visit and to review urine test result in 2 days. Take medication with food 2 times a day. Return to emergency if you develop testicular pain, penile discharge, penile rash, abdominal pain, or worsening of symptoms. Recheck your blood pressure at your doctor office in 2 days. Prescriptions: Doxycycline Hyclate 100 mg PO BID #20 capsule Referrals: Lulu Chapa MD [Primary Care Provider] - Follow up with primary Forms: [employer] ([place]), WORK NOTE
[2017-07-20 15:54] LABS: URINE APPEARANCE CLEAR (CLEAR); URINE BILIRUBIN NEGATIVE (NEGATIVE); URINE BLOOD TRACE-INTACT (NEGATIVE); URINE COLOR YELLOW (YELLOW); URINE GLUCOSE (UA) NEGATIVE (NEGATIVE); URINE LEUKOCYTE ESTERASE NEGATIVE Leu/uL (NEGATIVE); URINE PROTEIN NEGATIVE mg/dL (<30 mg/dL); URINE UROBILINOGEN 0.2 E.U./dL (<1 E.U./dL)
--- NOTE | 2017-07-20 15:54 | RAD ---
PROCEDURE: Right Hip and pelvis Radiographs. HISTORY: groin pain COMPARISON: None. FINDINGS: BONES: Normal. No fracture. JOINTS: Severe joint space narrowing is seen in the right hip. 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 SOFT TISSUES: Normal. OTHER FINDINGS: None. IMPRESSION: Severe joint space narrowing is seen in the right hip. 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
[2017-07-20 16:09] LABS: URINE EPITHELIAL CELLS 0 - 2 /hpf (0-5); URINE WBC 0 - 2 /hpf (0-6)
[2017-07-20] MEDS ORDERED: cefTRIAXone (Rocephin) 250 mg Inj IM STA (16:27)
[2017-07-20 17:15] VITALS: BP 149/87; PULSE 82; RESP 18; O2SAT 97
== END 2017-07-20 16:50 | disposition home or self-care (01) ==
LOC: ED 14:05
DX: R10.31 Right lower quadrant pain (principal); M16.11 Unilateral primary osteoarthritis, right hip
CPT/HCPCS: 73502; 81001; 82948; 87086; 87491; 87591; 96372; 99283; J0696

== ENCOUNTER 2017-10-04 14:51 | Emergency (ER) | payer BC ==
[2017-10-04 15:02] VITALS: RESP 18; TEMP 98.5
--- NOTE | 2017-10-04 15:19 | ED PDOC ---
Arrival/HPI - General Chief Complaint: GI Problem Time Seen by Provider: 10/04/17 15:06 Historian: Patient Past Medical History - Infectious Disease Hx of Infectious Diseases: None - Cardiac Hx Cardiac Disorders: No - Pulmonary Hx Respiratory Disorders: No - Neurological Hx Neurological Disorder: No HX Cerebrovascular Accident: No - HEENT Hx HEENT Disorder: No - Renal Hx Renal Disorder: No - Endocrine/Metabolic Hx Endocrine Disorders: No - Hematological/Oncological Hx Blood Disorders: Yes Hx Blood Transfusions: Yes Hx Blood Transfusion Reaction: No - Integumentary Hx Dermatological Disorder: No - Musculoskeletal/Rheumatological Hx Musculoskeletal Disorders: No - Gastrointestinal Hx Gastrointestinal Disorders: Yes Hx Gastrointestinal Ulcer: Yes - Genitourinary/Gynecological Hx Genitourinary Disorders: No - Psychiatric Hx Psychophysiologic Disorder: No Hx Substance Use: No - Surgical History Other/Comment: CHEST TUBE, ABD R/T ULCERS - Anesthesia Hx Anesthesia: Yes Hx Anesthesia Reactions: No Hx Malignant Hyperthermia: No Family/Social History Smoking Status: Never Smoked Hx Alcohol Use: Yes Frequency of alcohol use: Socially Hx Substance Use: No Allergies/Home Meds Allergies/Adverse Reactions: Allergies No Known Allergies Allergy (Verified 10/04/17 15:02) Home Medications: Home Meds Medication Instructions Recorded Confirmed No Known Home Med 10/04/17 10/04/17 Physical Exam Vital Signs Temp Pulse Resp BP Pulse Ox 10/04/17 14:58 98.5 F 65 18 156/100 H 98 Disposition/Present on Arrival - Present on Arrival History of DVT/PE: No History of Uncontrolled Diabetes: No Urinary Catheter: No History of Decub. Ulcer: No History Surgical Site Infection Following: None - Disposition
[2017-10-04] MEDS ORDERED: Sodium Chloride 0.9% 1,000 ML IV STA (15:20)
--- NOTE | 2017-10-04 15:26 | ED PDOC ---
Arrival/HPI - General Chief Complaint: GI Problem Time Seen by Provider: 10/04/17 15:06 Historian: Patient - History of Present Illness Narrative History of Present Illness (Text): 10/04/17 15:16 A 47 year old male, no significant pmh, presents to the emergency department complaining of rectal pain x 1 day. Patient reports after waking up this morning to use the bathroom for bowel movement, wiping vj-anal region, patient felt ball-like sensation to area with pain. States he began experiencing rectal pain afterwards. Patient denies any bloody stool, abdominal pain, nausea or vomiting, or any other complaints at this time. Also, patient denies any recent travels. Past Medical History - Provider Review Nursing Documentation Reviewed: Yes - Infectious Disease Hx of Infectious Diseases: None - Cardiac Hx Cardiac Disorders: No - Pulmonary Hx Respiratory Disorders: No - Neurological Hx Neurological Disorder: No HX Cerebrovascular Accident: No - HEENT Hx HEENT Disorder: No - Renal Hx Renal Disorder: No - Endocrine/Metabolic Hx Endocrine Disorders: No - Hematological/Oncological Hx Blood Disorders: Yes Hx Blood Transfusions: Yes Hx Blood Transfusion Reaction: No - Integumentary Hx Dermatological Disorder: No - Musculoskeletal/Rheumatological Hx Musculoskeletal Disorders: No - Gastrointestinal Hx Gastrointestinal Disorders: Yes Hx Gastrointestinal Ulcer: Yes - Genitourinary/Gynecological Hx Genitourinary Disorders: No - Psychiatric Hx Psychophysiologic Disorder: No Hx Substance Use: No - Surgical History Other/Comment: CHEST TUBE, ABD R/T ULCERS - Anesthesia Hx Anesthesia: Yes Hx Anesthesia Reactions: No Hx Malignant Hyperthermia: No Family/Social History - Physician Review Nursing Documentation Reviewed: Yes Family/Social History: No Known Family HX Smoking Status: Never Smoked Hx Alcohol Use: Yes Frequency of alcohol use: Socially Hx Substance Use: No Allergies/Home Meds Allergies/Adverse Reactions: Allergies No Known Allergies Allergy (Verified 10/04/17 15:02) Review of Systems - Physician Review All systems were reviewed & negative as marked: Yes - Review of Systems Constitutional: absent: Fatigue, Fevers Eyes: absent: Vision Changes ENT: absent: Hearing Changes Respiratory: absent: Cough Cardiovascular: absent: Chest Pain Gastrointestinal: Other (+rectal pain). absent: Abdominal Pain, Stool Changes ( no bloody stool), Nausea, Vomiting Genitourinary Male: absent: Dysuria, Frequency Musculoskeletal: absent: Arthralgias, Back Pain Skin: absent: Rash, Pruritis Neurological: absent: Headache, Dizziness Psychiatric: absent: Anxiety, Depression, Suicidal Ideation Physical Exam Vital Signs Reviewed: Yes Vital Signs Temp Pulse Resp BP Pulse Ox 10/04/17 17:03 98.5 F 63 18 145/89 100 10/04/17 14:58 98.5 F 65 18 156/100 H 98 Temperature: Afebrile Blood Pressure: Hypertensive Pulse: Regular Respiratory Rate: Normal Appearance: Positive for: Well-Appearing Pain Distress: Moderate Mental Status: Positive for: Alert and Oriented X 3 - Systems Exam Head: Present: Atraumatic, Normocephalic Pupils: Present: PERRL Extroacular Muscles: Present: EOMI Conjunctiva: Present: Normal Ears: Present: NORMAL TM, Normal Canal. No: Erythema Mouth: Present: Moist Mucous Membranes Neck: Present: Normal Range of Motion Respiratory/Chest: Present: Clear to Auscultation, Good Air Exchange. No: Respiratory Distress, Accessory Muscle Use Cardiovascular: Present: Regular Rate and Rhythm, Normal S1, S2. 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 No: Occult Blood, Gross Blood, Melena, Fissures Back: Present: Normal Inspection Upper Extremity: Present: Normal Inspection. No: Cyanosis, Edema Lower Extremity: Present: Normal Inspection. No: Edema Neurological: Present: GCS=15, CN II-XII Intact, Speech Normal, Motor Func Grossly Intact, Gait Normal, Memory Normal Skin: Present: Warm, Dry, Normal Color. No: Rashes Psychiatric: Present: Alert, Oriented x 3, Normal Insight, Normal Concentration Medical Decision Making ED Course and Treatment: 10/04/17 15:20 Impression: 47 year old male with rectal pain. Physical exam shows tenderness to vj-anal region, with visible 1.5 cm diameter external hemorrhoid. Plan: -- Pelvic CT W/ IV Contrast -- Labs -- IV Fluids/toradol -- Reassess and disposition 10/04/17 17:22 -CT pelvis show No evidence of perianal abscess -Labs are non-significant -Pain decreased, discussed with the patient labs/radiology result, request to be discharged home. -Discharge home with motrin, miralax, anusol hc, follow up with your own pmd and GI/general surgeon within 2 days, return to the ER for any new or worsening signs or symptoms. - Lab Interpretations Lab Results: 10/04/17 15:45 10/04/17 15:45 Lab Results 10/04/17 15:45: WBC 5.3, RBC 4.76, Hgb 15.0, Hct 42.2, MCV 88.7, MCH 31.5, MCHC 35.5, RDW 12.7, Plt Count 213, MPV 10.6, Gran % 69.7 H, Lymph % (Auto) 21.2 L, [place] % (Auto) 8.3 H, Eos % (Auto) 0.4 L, Baso % (Auto) 0.4, Gran # 3.69, Lymph # (Auto) 1.1 L, [place] # (Auto) 0.4, Eos # (Auto) 0.0, Baso # (Auto) 0.02 10/04/17 15:45: Sodium 139, Potassium 4.4, Chloride 104, Carbon Dioxide 24, Anion Gap 16, BUN 15, Creatinine 0.8, Est GFR ( Amer) > 60, Est GFR (Non- Af Amer) > 60, Random Glucose 82, Calcium 9.6, Magnesium 1.9, Total Bilirubin 0.4, AST 42, ALT 48, Alkaline Phosphatase 73, Total Protein 7.4, Albumin 4.2, Globulin 3.3, Albumin/Globulin Ratio 1.3 10/04/17 15:45: PT 11.3, INR 0.99, APTT 29.7 I have reviewed the lab results: Yes - RAD Interpretation Radiology Orders: 10/04/17 15:19 PELVIS W/IV CONTRAST ONLY [CT] Stat PROCEDURE: CT Pelvis with contrast HISTORY: perianal pain, r/o perianal abscess COMPARISON: None. TECHNIQUE: Contiguous axial images of the pelvis with contrast. Coronal and sagittal reformats generated. Contrast dose: 100 cc of Omni 350 Radiation dose: Total exam DLP = 508 mGy-cm. This CT exam was performed using one or more of the following dose reduction techniques: Automated exposure control, adjustment of the mA and/or kV according to patient size, and/or use of iterative reconstruction technique. FINDINGS: BLADDER: Unremarkable. No mass. REPRODUCTIVE ORGANS: Unremarkable. VISUALIZED BOWEL: Unremarkable. PERITONEUM: Unremarkable, as visualized. No free fluid. No free air. LYMPH NODES: Unremarkable. No enlarged lymph nodes. VASCULATURE: Unremarkable. BONES: No fracture or focal lesion. OTHER FINDINGS: None. IMPRESSION: No evidence of perianal abscess Obstetrical Tech: Radiologist - Medication Orders Current Medication Orders: Discontinued Medications Sodium Chloride (Sodium Chloride 0.9%) 1,000 mls @ 999 mls/hr IV .Q1H1M STA Stop: 10/04/17 16:20 Last Admin: 10/04/17 16:02 Dose: 999 mls/hr eMAR Start Stop Document 10/04/17 16:02 LA (Rec: 10/04/17 16:02 LA [id number]) Intravenous Solution Start Date 10/04/17 Start Time 16:02 End Date 10/04/17 End time 17:03 Total Infusion Time 61 Ketorolac Tromethamine (Toradol) 30 mg IVP STAT STA Stop: 10/04/17 15:21 Last Admin: 10/04/17 16:02 Dose: 30 mg MAR Pain Assessment Document 10/04/17 16:02 LA (Rec: 10/04/17 16:02 LA [id number]) Pain Reassessment Is this a pain reassessment? No Sleep Is patient sleeping during reassessment? No Presence of Pain Presence of Pain Yes Pain Scale Used Pain Scale Used Numeric Description Description Intermittent Intensity of Pain at present 6 Pain Behavior Guarding IVP Administration Document 10/04/17 16:02 LA (Rec: 10/04/17 16:02 LA [id number]) Charges for Administration # of IVP Administrations 1 - PA / ACCESS TECH / Resident Statement MD/DO has reviewed & agrees with the documentation as recorded. - Scribe Statement The provider has reviewed the documentation as recorded by the Clayton Mcclelland Provider Scribe Attestation: All medical record entries made by the Clayton were at my direction and personally dictated by me. I have reviewed the chart and agree that the record accurately reflects my personal performance of the history, physical exam, medical decision making, and the department course for this patient. I have also personally directed, reviewed, and agree with the discharge instructions and disposition. Disposition/Present on Arrival - Present on Arrival Any Indicators Present on Arrival: No History of DVT/PE: No History of Uncontrolled Diabetes: No Urinary Catheter: No History of Decub. Ulcer: No History Surgical Site Infection Following: None - Disposition Have Diagnosis and Disposition been Completed?: Yes Diagnosis: Hemorrhoid, Rectal pain Disposition: HOME/ ROUTINE Disposition Time: 15:32 Patient Plan: Discharge Patient Problems: Current Active Problems Problem Status Onset Hemorrhoid Acute Rectal pain Acute Condition: IMPROVED Additional Instructions: -Discharge home with motrin, miralax, anusol hc, follow up with your own pmd and GI/general surgeon within 2 days, return to the ER for any new or worsening signs or symptoms. Prescriptions: Hydrocortisone 2.5% (Rectal) [Anusol-HC] 1 applic TX BID #60 g Ibuprofen [Motrin Tab] 600 mg PO TID PRN #21 tab PRN Reason: Other Polyethylene Glycol 3350 [Miralax] 17 gm PO DAILY PRN #4 packet PRN Reason: Other Referrals: Diego Hooper MD [Staff Provider] - Follow up with primary Lulu Chapa MD [Staff Provider] - Follow up with primary Forms: WORK NOTE
[2017-10-04 16:09] LABS: BASO # 0.02 K/mm3 (0.0-2.0); BASO % 0.4 % (0.0-3.0); EOS % 0.4 % (1.5-5.0); GRAN # 3.69 (1.4-6.5); GRAN % 69.7 % (50.0-68.0); LYMPH # 1.1 (1.2-3.4); LYMPH % 21.2 % (22.0-35.0); MEAN CELL VOLUME 88.7 fl (80.0-105.0); MEAN CORPUSCULAR HEMOGLOBIN 31.5 pg (25.0-35.0); MEAN CORPUSCULAR HGB CONC 35.5 g/dl (31.0-37.0); MEAN PLATELET VOLUME 10.6 fl (7.0-11.0); MONO # 0.4 (0.1-0.6); MONO % 8.3 % (1.0-6.0); RBC 4.76 10^6/uL (3.5-6.1); RED CELL DISTRIBUTION WIDTH 12.7 % (11.5-14.5); WHITE BLOOD COUNT 5.3 10^3/ul (4.5-11.0)
[2017-10-04 16:20] LABS: INR 0.99 (0.93-1.08); PARTIAL THROMBOPLASTIN TIME 29.7 Seconds (25.1-36.5); PROTHROMBIN TIME 11.3 SECONDS (9.4-12.5)
[2017-10-04 16:22] LABS: ALB/GLOB RATIO 1.3 (1.1-1.8); ALBUMIN 4.2 g/dL (3.0-4.8); ALT/SGPT 48 U/L (7-56); AST/SGOT 42 U/L (17-59); BLOOD UREA NITROGEN 15 mg/dL (7-21); CALCIUM 9.6 mg/dL (8.4-10.5); GFR AFRICAN-AMERICAN > 60; GFR NON-AFRICAN AMERICAN > 60
[2017-10-04 17:04] VITALS: O2SAT 100
--- NOTE | 2017-10-04 17:13 | CT ---
PROCEDURE: CT Pelvis with contrast HISTORY: perianal pain, r/o perianal abscess COMPARISON: None. TECHNIQUE: Contiguous axial images of the pelvis with contrast. Coronal and sagittal reformats generated. Contrast dose: 100 cc of Omni 350 Radiation dose: Total exam DLP = 508 mGy-cm. This CT exam was performed using one or more of the following dose reduction techniques: Automated exposure control, adjustment of the mA and/or kV according to patient size, and/or use of iterative reconstruction technique. FINDINGS: BLADDER: Unremarkable. No mass. REPRODUCTIVE ORGANS: Unremarkable. VISUALIZED BOWEL: Unremarkable. PERITONEUM: Unremarkable, as visualized. No free fluid. No free air. LYMPH NODES: Unremarkable. No enlarged lymph nodes. VASCULATURE: Unremarkable. BONES: No fracture or focal lesion. OTHER FINDINGS: None. IMPRESSION: No evidence of perianal abscess
[2017-10-04 17:45] VITALS: BP 140/85; PULSE 65
== END 2017-10-04 17:41 | disposition home or self-care (01) ==
LOC: ED 14:51
DX: K64.4 Residual hemorrhoidal skin tags (principal)
CPT/HCPCS: 72193; 80053; 83735; 85025; 85610; 85730; 96361; 96374; 99284; J1885; J7030; Q9967

== ENCOUNTER 2017-10-25 15:14 | Inpatient (IN) | payer BC ==
--- NOTE | 2017-10-25 15:26 | ED PDOC ---
Arrival/HPI - General Time Seen by Provider: 10/25/17 15:16 Historian: Patient - History of Present Illness Narrative History of Present Illness (Text): 10/25/17 15:52 47yo male with pmhx of GI bleed who present with complaint of abdominal pain and dark stool x 2days. He also reports lightheadedness for the past two days. States symptoms symptoms are similar to the same symptoms he had when he was admitted her for GI bleed last year. States he have not seen a GI or his PMD, since he was discharged last year. Denies fever, chills, diarrhea, constipation , urinary symptoms, chest pain, SOB, focal weakness, any other complaint. Past Medical History - Provider Review Nursing Documentation Reviewed: Yes - Infectious Disease Hx of Infectious Diseases: None - Cardiac Hx Cardiac Disorders: No - Pulmonary Hx Respiratory Disorders: No - Neurological Hx Neurological Disorder: No HX Cerebrovascular Accident: No - HEENT Hx HEENT Disorder: No - Renal Hx Renal Disorder: No - Endocrine/Metabolic Hx Endocrine Disorders: No - Hematological/Oncological Hx Blood Disorders: Yes Hx Blood Transfusions: Yes Hx Blood Transfusion Reaction: No - Integumentary Hx Dermatological Disorder: No - Musculoskeletal/Rheumatological Hx Musculoskeletal Disorders: No - Gastrointestinal Hx Gastrointestinal Disorders: Yes Hx Gastrointestinal Ulcer: Yes - Genitourinary/Gynecological Hx Genitourinary Disorders: No - Psychiatric Hx Psychophysiologic Disorder: No Hx Substance Use: No - Surgical History Other/Comment: CHEST TUBE, ABD R/T ULCERS - Anesthesia Hx Anesthesia: Yes Hx Anesthesia Reactions: No Hx Malignant Hyperthermia: No Family/Social History - Physician Review Nursing Documentation Reviewed: Yes Family/Social History: Unknown Family HX Smoking Status: Never Smoked Hx Alcohol Use: Yes Hx Substance Use: No Allergies/Home Meds Allergies/Adverse Reactions: Allergies No Known Allergies Allergy (Verified 10/04/17 15:02) Home Medications: Home Meds Medication Instructions Recorded Confirmed No Known Home Med 10/25/17 10/25/17 Review of Systems - Physician Review All systems were reviewed & negative as marked: Yes - Review of Systems Constitutional: Normal Eyes: Normal ENT: Normal Respiratory: Normal Cardiovascular: Normal Gastrointestinal: Abdominal Pain, Stool Changes (Melena). absent: Constipation , Diarrhea, Nausea, Vomiting, Hematochezia, Hematemesis Genitourinary Male: Normal Musculoskeletal: Normal Skin: Normal Neurological: Dizziness Endocrine: Normal Hemo/Lymphatic: Normal Psychiatric: Normal Physical Exam Vital Signs Reviewed: Yes Vital Signs Temp Pulse Resp BP Pulse Ox 10/25/17 17:03 98.6 F 85 18 157/94 H 100 10/25/17 15:18 99.2 F 103 H 18 128/85 98 Temperature: Afebrile Blood Pressure: Normal Pulse: Regular Respiratory Rate: Normal Appearance: Positive for: Well-Appearing, Non-Toxic, Comfortable Pain Distress: None Mental Status: Positive for: Alert and Oriented X 3 - Systems Exam Head: Present: Atraumatic, Normocephalic Pupils: Present: PERRL Extroacular Muscles: Present: EOMI Conjunctiva: Present: Normal Mouth: Present: Moist Mucous Membranes Neck: Present: Normal Range of Motion Respiratory/Chest: Present: Clear to Auscultation, Good Air Exchange. No: Respiratory Distress, Accessory Muscle Use Cardiovascular: Present: Regular Rate and Rhythm, Normal S1, S2. No: Murmurs Abdomen: Present: Tenderness (Periumbilical tenderness with deep palpation), Other (soft). No: Distention, Peritoneal Signs, Rebound, Guarding, McBurney's Point Tender, Rovsing's Sign Present Rectal: Present: Melena, Hemorrhoids (Nonstrngulated tender external hemorrhoid noted), Normal Rectal Tone. No: Occult Blood, Gross Blood, Fissures Back: Present: Normal Inspection Upper Extremity: Present: Normal Inspection. No: Cyanosis, Edema Lower Extremity: Present: Normal Inspection. No: Edema Neurological: Present: GCS=15, CN II-XII Intact, Speech Normal Skin: Present: Warm, Dry, Normal Color. No: Rashes Psychiatric: Present: Alert, Oriented x 3, Normal Insight, Normal Concentration Medical Decision Making ED Course and Treatment: 10/25/17 19:34 Pt in ED for stated history. He was not in any distress. He present with complaint of abdominal pain, lightheadedness and black stool. His H/H was 9.8 which showed significant drop from 15.0 on 10/04/17. He is having symptomatic anemia. His Occult was positive in ED. He was hydrated and protnix was ordered. they is no indication for blood transfusion at this time. EKG NSR with nonspecific T wave abnormality @92bpm He have not seen a GI since his last GI bleed. He will be admitted for GI consult and possible EGD. Case was DW Dr. Chapa and she accepted pt for admission. - Lab Interpretations Lab Results: 10/25/17 15:55 10/25/17 15:55 Lab Results 10/25/17 15:55: Sodium 141, Potassium 4.0, Chloride 106, Carbon Dioxide 21, Anion Gap 17, BUN 25 H, Creatinine 1.0, Est GFR ( Amer) > 60, Est GFR ( Non-Af Amer) > 60, Random Glucose 102, Calcium 8.6, Magnesium 2.2, Total Bilirubin 0.4, AST 45, ALT 41, Alkaline Phosphatase 49, Total Protein 6.4, Albumin 3.6, Globulin 2.8, Albumin/Globulin Ratio 1.3, Lipase 41 10/25/17 15:55: PT 11.7, INR 1.03, APTT 26.8 10/25/17 15:55: WBC 8.8 D, RBC 3.14 L, Hgb 9.8 L D, Hct 28.1 L, MCV 89.5, MCH 31.2, MCHC 34.9, RDW 13.4, Plt Count 206, MPV 10.4, Gran % 72.2 H, Lymph % (Auto ) 21.1 L, [place] % (Auto) 5.7, Eos % (Auto) 0.7 L, Baso % (Auto) 0.3, Gran # 6.31 , Lymph # (Auto) 1.9, [place] # (Auto) 0.5, Eos # (Auto) 0.1, Baso # (Auto) 0.03 10/25/17 15:35: Urine Color Yellow, Urine Appearance Clear, Urine pH 6.0, Ur Specific [place] 1.025, Urine Protein Trace H, Urine Glucose (UA) Negative, Urine Ketones 15 H, Urine Blood Negative, Urine Nitrate Negative, Urine Bilirubin Negative, Urine Urobilinogen 0.2, Ur Leukocyte Esterase Negative, Urine RBC 0 - 2, Urine WBC 0 - 2, Ur Epithelial Cells 0 - 2 - Medication Orders Current Medication Orders: Discontinued Medications Sodium Chloride (Sodium Chloride 0.9%) 1,000 mls @ 1,000 mls/hr IV .Q1H STA Stop: 10/25/17 16:26 Last Admin: 10/25/17 15:50 Dose: 1,000 mls/hr eMAR Start Stop Document 10/25/17 15:50 LA (Rec: 10/25/17 15:50 LA [id number] Intravenous Solution Start Date 10/25/17 Start Time 15:50 End Date 10/25/17 End time 16:50 Total Infusion Time 60 Pantoprazole Sodium (Protonix Inj) 40 mg IVP STAT STA Stop: 10/25/17 15:28 Last Admin: 10/25/17 15:49 Dose: 40 mg IVP Administration Document 10/25/17 15:49 LA (Rec: 10/25/17 15:49 LA [id number] Charges for Administration # of IVP Administrations 1 Disposition/Present on Arrival - Present on Arrival Any Indicators Present on Arrival: No History of DVT/PE: No History of Uncontrolled Diabetes: No Urinary Catheter: No History Surgical Site Infection Following: None - Disposition Have Diagnosis and Disposition been Completed?: Yes Diagnosis: GI bleeding, Abdominal pain, Anemia Disposition: HOSPITALIZED Disposition Time: 18:20 Patient Plan: Admission Patient Problems: Current Active Problems Problem Status Onset Abdominal pain Acute GI bleeding Acute Condition: FAIR
[2017-10-25] MEDS ORDERED: Sodium Chloride 0.9% 1,000 ML IV STA (15:27)
[2017-10-25 16:23] LABS: URINE BILIRUBIN NEGATIVE (NEGATIVE); URINE BLOOD NEGATIVE (NEGATIVE); URINE GLUCOSE (UA) NEGATIVE (NEGATIVE); URINE LEUKOCYTE ESTERASE NEGATIVE Leu/uL (NEGATIVE); URINE PROTEIN TRACE mg/dL (<30 mg/dL); URINE UROBILINOGEN 0.2 E.U./dL (<1 E.U./dL)
[2017-10-25 16:25] LABS: URINE APPEARANCE CLEAR (CLEAR); URINE COLOR YELLOW (YELLOW)
[2017-10-25 16:27] LABS: BASO # 0.03 K/mm3 (0.0-2.0); BASO % 0.3 % (0.0-3.0); EOS # 0.1 (0.0-0.7); EOS % 0.7 % (1.5-5.0); GRAN # 6.31 (1.4-6.5); GRAN % 72.2 % (50.0-68.0); HEMOGLOBIN 9.8 g/dL (14.0-18.0); LYMPH # 1.9 (1.2-3.4); LYMPH % 21.1 % (22.0-35.0); MEAN CELL VOLUME 89.5 fl (80.0-105.0); MEAN CORPUSCULAR HEMOGLOBIN 31.2 pg (25.0-35.0); MEAN CORPUSCULAR HGB CONC 34.9 g/dl (31.0-37.0); MEAN PLATELET VOLUME 10.4 fl (7.0-11.0); MONO # 0.5 (0.1-0.6); MONO % 5.7 % (1.0-6.0); RBC 3.14 10^6/uL (3.5-6.1); RED CELL DISTRIBUTION WIDTH 13.4 % (11.5-14.5); WHITE BLOOD COUNT 8.8 10^3/ul (4.5-11.0)
[2017-10-25 16:33] LABS: URINE EPITHELIAL CELLS 0 - 2 /hpf (0-5); URINE RBC 0 - 2 /hpf (0-2); URINE WBC 0 - 2 /hpf (0-6)
[2017-10-25 16:35] LABS: ALB/GLOB RATIO 1.3 (1.1-1.8); ALBUMIN 3.6 g/dL (3.0-4.8); ALT/SGPT 41 U/L (7-56); AST/SGOT 45 U/L (17-59); BLOOD UREA NITROGEN 25 mg/dL (7-21); CALCIUM 8.6 mg/dL (8.4-10.5); GFR AFRICAN-AMERICAN > 60; GFR NON-AFRICAN AMERICAN > 60; LIPASE 41 U/L (23-300)
[2017-10-25 16:37] LABS: INR 1.03 (0.93-1.08); PARTIAL THROMBOPLASTIN TIME 26.8 Seconds (25.1-36.5); PROTHROMBIN TIME 11.7 SECONDS (9.4-12.5)
[2017-10-25 21:07] VITALS: BMI 31.0
[2017-10-25] MEDS ORDERED: Sodium Chloride 0.9% 100 ML IV SCH (22:30)
[2017-10-25] MEDS: Sodium Chloride 0.9% 1,000 ML IV SCH (23:11)
[2017-10-25] MEDS: Pantoprazole 40mg/100mL NS 40 MG/100 ML BAG IVPB SCH (23:28)
[2017-10-26] MEDS: Pantoprazole 40mg/100mL NS 40 MG/100 ML BAG IVPB SCH ×2 (05:27→08:16)
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
--- NOTE | 2017-10-26 11:12 | RAD ---
HISTORY: Admission. COMPARISON: 01/13/2017. FINDINGS: LUNGS: No active pulmonary disease. PLEURA: No significant pleural effusion identified, no pneumothorax apparent. CARDIOVASCULAR: No radiographic findings to suggest acute or significant cardiovascular disease. OSSEOUS STRUCTURES: No significant abnormalities. VISUALIZED UPPER ABDOMEN: Normal. OTHER FINDINGS: None. IMPRESSION: No active disease. No significant interval change compared to the prior examination(s).
[2017-10-26] MEDS ORDERED: Midazolam 2 MG/2 ML VIAL ONE ×4 (13:19→13:52)
[2017-10-26] MEDS ORDERED: Midazolam 2 MG/2 ML VIAL IV ONE (14:30)
--- NOTE | 2017-10-26 17:26 | CARD ---
APPROVED REPORT EKG Measurement Heart [id number] NM [id number] <Conclusion> Normal sinus rhythm Nonspecific T wave abnormality Abnormal ECG
[2017-10-27] MEDS: Pantoprazole 40mg/100mL NS 40 MG/100 ML BAG IVPB SCH ×4 (00:10→04:45)
[2017-10-27 07:46] LABS: HDL CHOLESTEROL 43 mg/dL (29-60); IRON 99 ug/dL (45-180)
[2017-10-27 07:56] LABS: B-TYPE NATRIURETIC PEPTIDE 140 pg/mL (0-450)
[2017-10-27 07:58] LABS: LDL CHOLESTEROL 79 mg/dL (0-129)
[2017-10-27 07:59] LABS: % IRON SATURATION 28 % (20-55); TOTAL IRON BINDING CAPACITY 358 ug/dL (261-462)
--- NOTE | 2017-10-27 09:20 | CT ---
PROCEDURE: CT Abdomen and Pelvis with contrast HISTORY: R/O splenic vein thrombosis/eval liver- IGV on EGD COMPARISON: None. TECHNIQUE: Contrast dose: 150 mL Omnipaque 300 Radiation dose: Total exam DLP = 778 mGy-cm. This CT exam was performed using one or more of the following dose reduction techniques: Automated exposure control, adjustment of the mA and/or kV according to patient size, and/or use of iterative reconstruction technique. FINDINGS: LOWER THORAX: Posterior left pleural thickening -minimal small concomitant pleural effusion here possible LIVER: Fatty liver. No gross lesion or ductal dilatation. GALLBLADDER AND BILE DUCTS: Unremarkable. PANCREAS: Unremarkable. No gross lesion or ductal dilatation. SPLEEN: Small splenule -otherwise unremarkable ADRENALS: Unremarkable. No mass. KIDNEYS AND URETERS: Lower Unremarkable. No hydronephrosis. No solid mass. VASCULATURE: Few scattered atherosclerotic vascular calcifications present. No aortic aneurysm. No splenic vein filling defects seen to suggest thrombosis here BOWEL: Distended stomach.A small umbilical hernia with a knuckle of small bowel partially protruding into it noted No obstruction. . Rectosigmoid mild circumferential mural thickening -versus incomplete distention and infolding. A focal mild colitis here is a consideration. There is minimal fluid and/or inflammatory changes in the right and left hemipelvis. No abscess or drainable collection appreciated. Tiny left and right colonic diverticulosis apparent no complicating diverticulitis seen. Anal rectal circumferential mild mural thickening perceived -a concomitant mild proctitis here is also considered. Correlate clinically APPENDIX: Normal appendix. PERITONEUM: Minimal right (and left) hemipelvic fluid with or without inflammatory change. No free air. LYMPH NODES: Unremarkable. No enlarged lymph nodes. BLADDER: Unremarkable. REPRODUCTIVE: Mild prostatic prominence. BONES: No acute fracture. OTHER FINDINGS: Left hemipelvic phleboliths IMPRESSION: Anorectal apparent circumferential mild mural thickening -proctitis is a consideration. Rectosigmoid segmental circumferential mild mural thickening - a focal mild colitis here is also a consideration. Minimal levi pelvic free fluid with or without trace inflammatory change. No abscess or drainable collections noted. Small left and right colonic diverticulosis apparent no complicating diverticulitis appreciated. No splenic vein filling defect/thrombosis suggested. Small umbilical hernia with knuckle of small bowel partially protruding into it. No obstruction Other findings -as above.
[2017-10-27 09:29] LABS: BASO # 0.01 K/mm3 (0.0-2.0); BASO % 0.2 % (0.0-3.0); EOS # 0.1 (0.0-0.7); EOS % 2.2 % (1.5-5.0); GRAN # 3.31 (1.4-6.5); GRAN % 71.8 % (50.0-68.0); LYMPH % 20.8 % (22.0-35.0); MEAN CELL VOLUME 91.3 fl (80.0-105.0); MEAN CORPUSCULAR HEMOGLOBIN 31.6 pg (25.0-35.0); MEAN CORPUSCULAR HGB CONC 34.6 g/dl (31.0-37.0); MEAN PLATELET VOLUME 10.4 fl (7.0-11.0); MONO # 0.2 (0.1-0.6); RBC 1.96 10^6/uL (3.5-6.1); RED CELL DISTRIBUTION WIDTH 13.7 % (11.5-14.5); WHITE BLOOD COUNT 4.6 10^3/ul (4.5-11.0)
[2017-10-27 09:45] LABS: HEMOGLOBIN 6.2 g/dL (14.0-18.0)
--- NOTE | 2017-10-27 10:29 | CP.PCM.PN ---
Subjective - Date & Time of Evaluation Date of Evaluation: 10/27/17 Time of Evaluation: 07:00 - Subjective Subjective: PGY6 GI Fellow Progress Note Patient seen and examined bedside this morning. The patient states that he is feeling well today but continues to pass formed, dark stool. No abdominal pain, nausea, vomiting. Tolerating liquids without issue. No SOB, palpitations, chest pain, dyspnea on exertion, dizziness/lightheadedness. No events overnight. 12 system ROS performed and negative except where stated. Objective - Vital Signs/Intake and Output Vital Signs (last 24 hours): Temp Pulse Resp BP Pulse Ox 98.5 F 86 20 122/76 100 10/27/17 06:00 10/27/17 06:00 10/27/17 06:00 10/26/17 14:50 10/27/17 06:00 Intake and Output: 10/27/17 10/27/17 06:59 18:59 Intake Total 1220 Balance 1220 - Medications Medications: Current Medications Sodium Chloride (Sodium Chloride 0.9%) 1,000 mls @ 100 mls/hr IV .Q10H [facility] Last Admin: 10/25/17 23:11 Dose: Not Given Pantoprazole Sodium (Protonix Ec Tab) 40 mg PO 0600,1600 [facility] - Labs Labs: 10/27/17 09:00 PT 11.7 SECONDS (9.4-12.5) 10/25/17 15:55 INR 1.03 (0.93-1.08) 10/25/17 15:55 APTT 26.8 Seconds (25.1-36.5) 10/25/17 15:55 - Constitutional Appears: Non-toxic, No Acute Distress - Eye Exam Eye Exam: EOMI, PERRL - ENT Exam ENT Exam: Mucous Membranes Moist - Respiratory Exam Respiratory Exam: Clear to Ausculation Bilateral. absent: Rales, Rhonchi, Wheezes - Cardiovascular Exam Cardiovascular Exam: RRR, +S1, +S2 - GI/Abdominal Exam GI & Abdominal Exam: Soft, Normal Bowel Sounds. absent: Distended, Firm, Guarding, Rigid, Tenderness, Organomegaly - Extremities Exam Extremities Exam: Normal Inspection. 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 -H/O H pylori gastritis -H/O Tubulovillous adenoma -Diverticulosis Plan: -S/P EGD with findings of gastric ulcer with visible vessel s/p injection of epinephrine and gold probe cautery -HGB downtrending, 6.2 today - PRBC transfusion ordered; please repeat H/H following transfusion -No evidence of recurrent overt bleeding such as melena/hematochezia -PPI ordered with pantoprazole 40mg PO BIDAC -H pylori stool ag ordered -CT with IV contrast reviewed - evidence of rectosigmoid colitis though limited in absence of PO contrast; no evidence for splenic vein thrombosis to explain gastric varix -Continue liquid diet -Will require repeat EGD in 2 months to check healing - will need biopsies at that time -Plan per endoscopic findings
--- NOTE | 2017-10-27 13:12 | HP ---
DATE OF EXAM: 10/26/2017 The patient was seen and examined in his room on 10/26/2017. CHIEF COMPLAINT: GI bleeding. HISTORY OF PRESENT ILLNESS: Mr. Jason Barbosa is a 47-year-old male with history of GI bleeding who came to the Emergency Room complaining of abdominal pain, dark stool for 2 days. He also reports light headedness for the past 2 days. States his symptoms are similar to the same symptoms he had when he was admitted for GI bleeding last year. States that he has not seen GI or his primary care physician since he was discharged last year. Denies fever, chills, diarrhea, constipation, urinary symptoms, chest pain, shortness of breath, focal weakness, or any other complaints. PAST MEDICAL HISTORY: Blood transfusion, gastrointestinal ulcer, history of chest tube. FAMILY HISTORY: Father and mother, noncontributory. HABITS: Never smoked. Alcohol, yes. Substance abuse, no. ALLERGIES: THE PATIENT IS NOT ALLERGIC WITH ANY MEDICATIONS. HOME MEDICATIONS: Refused by the patient. REVIEW OF SYSTEMS: The patient was seen and examined at the bedside, looking comfortable. Girlfriend was sitting on the bedside also. Eyes and ENT, normal. Just abdominal pain, stool changes, melena. Absent constipation, diarrhea, nausea. No hematemesis, no hematochezia. Some times, dizziness. No chest pain, no palpitations. PHYSICAL EXAMINATION: VITAL SIGNS: Temperature 98.6, pulse 85, blood pressure 157/94, pulse oximetry 100. HEENT: Head normocephalic, atraumatic. Eyes: PERRLA. Extraocular muscles intact. Conjunctivae clear. Nose patent. Mucous membranes moist. NECK: Supple. No carotid bruit. No JVD or thyromegaly. CHEST: Bilaterally symmetrical. HEART: S1, S2 positive. LUNGS: Clear to auscultation. ABDOMEN: Soft. Bowel sounds positive. No organomegaly. EXTREMITIES: No edema, no cyanosis. NEUROLOGIC: The patient is awake, alert. Moving all 4 extremities. No focal deficits. LABORATORY DATA: White blood cell 8.8, hemoglobin 9.8, hematocrit 28.1 . Sodium 141, potassium 4, BUN 25, creatinine 1, glucose 102. ASSESSMENT AND PLAN: Mr. Jason Barbosa is a 47-year-old male with anemia, came with abdominal pain, gastric bleeding, history of anemia, status post blood transfusion, history of gastrointestinal ulcer, history of chest tube, rule out ulcers. Admitted the patient. GI consult called with Dr. Sonny Tran. He saw the patient. Pantoprazole given, IV fluids given. The patient has erosive esophagitis, hiatal hernia, gastric ulcer. Cauterization done. The patient is started on liquid diet. Await for night and tomorrow if tolerated, we will food. CAT scan of the abdomen and pelvis done. Results are pending. Gastric and deep venous thrombosis prophylaxis given. Repeat labs. We will follow up. Lulu Chapa MD
[2017-10-27 13:42] LABS: FOLATE > 20.0 ng/mL
[2017-10-27] MEDS: Pantoprazole 40 mg EC Tab PO SCH (17:14)
[2017-10-27 21:42] LABS: HEMOGLOBIN 8.5 g/dL (14.0-18.0)
[2017-10-28] MEDS: Sodium Chloride 0.9% 1,000 ML IV SCH ×4 (02:04→22:27)
[2017-10-28 07:36] LABS: HEMOGLOBIN 8.6 g/dL (14.0-18.0); MEAN CELL VOLUME 88.7 fl (80.0-105.0); MEAN CORPUSCULAR HEMOGLOBIN 30.5 pg (25.0-35.0); MEAN CORPUSCULAR HGB CONC 34.4 g/dl (31.0-37.0); MEAN PLATELET VOLUME 10.4 fl (7.0-11.0); RBC 2.82 10^6/uL (3.5-6.1); RED CELL DISTRIBUTION WIDTH 15.1 % (11.5-14.5); WHITE BLOOD COUNT 5.7 10^3/ul (4.5-11.0)
[2017-10-28] MEDS: Pantoprazole 40 mg EC Tab PO SCH ×2 (07:36→17:15)
--- NOTE | 2017-10-28 10:11 | CP.PCM.PN ---
<Braxton Freitas - Last Filed: 10/28/17 10:20> Subjective - Date & Time of Evaluation Date of Evaluation: 10/28/17 Time of Evaluation: 10:08 - Subjective Subjective: Medicine progress note for Dr. Navarro (covering for Dr. Chapa) - Grace Freitas PGY3 Patient seen and examined at bedside this morning. No acute overnight events or new complaints reported. Denies abdominal pain, melena/hematochezia at this time. Has been tolerating liquid diet. He is s/p EGD which revealed oozing gastric ulcers with oozing hemorrhage. Discussed present workup/results with patient. Will follow up GI recommendations. Objective - Vital Signs/Intake and Output Vital Signs (last 24 hours): Temp Pulse Resp BP Pulse Ox 98.3 F 72 20 131/86 96 10/28/17 06:00 10/28/17 06:00 10/28/17 06:00 10/28/17 06:00 10/28/17 06:00 Intake and Output: 10/28/17 10/28/17 06:59 18:59 Intake Total 2280 Output Total 400 Balance 1880 - Medications Medications: Current Medications Sodium Chloride (Sodium Chloride 0.9%) 1,000 mls @ 100 mls/hr IV .Q10H [facility] Last Admin: 10/28/17 02:04 Dose: 100 mls/hr Pantoprazole Sodium (Protonix Ec Tab) 40 mg PO 0600,1600 [facility] Last Admin: 10/28/17 07:36 Dose: 40 mg - Labs Labs: 10/28/17 07:20 PT 11.7 SECONDS (9.4-12.5) 10/25/17 15:55 INR 1.03 (0.93-1.08) 10/25/17 15:55 APTT 26.8 Seconds (25.1-36.5) 10/25/17 15:55 - Constitutional Appears: No Acute Distress - Head Exam Head Exam: ATRAUMATIC, NORMOCEPHALIC - Eye Exam Eye Exam: EOMI Pupil Exam: PERRL - ENT Exam ENT Exam: Mucous Membranes Moist - Respiratory Exam Respiratory Exam: Clear to Ausculation Bilateral. absent: Rales, Rhonchi, Wheezes - Cardiovascular Exam Cardiovascular Exam: +S1, +S2. absent: Gallop, Rubs, Murmur - GI/Abdominal Exam GI & Abdominal Exam: Soft, Normal Bowel Sounds. absent: Distended, Firm, Guarding, Rigid, Tenderness, Rebound - Neurological Exam Neurological Exam: Alert, Awake, CN II-XII Intact, Oriented x3 - Psychiatric Exam Psychiatric exam: Normal Affect, Normal Mood - Skin Skin Exam: Dry, Intact, Normal Color, Warm Assessment and Plan - Assessment and Plan (Free Text) Plan: 47yo male with history of PUD, hpylori gastritis, diverticulosis and tubulovillious adenoma on colonoscopy presents with dark stool, dizziness and fatigue secondary to upper GI bleed 1. Upper GI Bleed secondary to gastric ulcers 2. Hx of PUD 3. Hx of hpylori gastritis (treatment naive) 4. Hx of Diverticulosis -Patient underwent EGD which was reviewed and revealed oozing gastric ulcers with oozing hemorrhage treated with injection and heater probe, type I isolated gastric varices; recommended EGD in 2 months -We will continue to monitor CBC, hgb has been stable this morning 8.6 from 8.5 yesterday; received a total of 2u PRBC previously -Discussed avoiding NSAIDs -CT abd/pelvis reviewed; see full report -Continue protonix 40 BID as per GI recommendation -Maintain peripheral IV with IVF hydration -Tolerating liquid diet -Will monitor and replete electrolytes as indicated Patient seen and case discussed/reviewed with attending, Dr. Navarro <Darwin Navarro S - Last Filed: 10/28/17 11:42> Objective - Vital Signs/Intake and Output Vital Signs (last 24 hours): Temp Pulse Resp BP Pulse Ox 98.3 F 72 20 131/86 96 10/28/17 06:00 10/28/17 06:00 10/28/17 06:00 10/28/17 06:00 10/28/17 06:00 Intake and Output: 10/28/17 10/28/17 06:59 18:59 Intake Total 2280 Output Total 400 Balance 1880 - Medications Medications: Current Medications Sodium Chloride (Sodium Chloride 0.9%) 1,000 mls @ 100 mls/hr IV .Q10H [facility] Last Admin: 10/28/17 11:29 Dose: 100 mls/hr Pantoprazole Sodium (Protonix Ec Tab) 40 mg PO 0600,1600 [facility] Last Admin: 10/28/17 07:36 Dose: 40 mg - Labs Labs: 10/28/17 07:20 PT 11.7 SECONDS (9.4-12.5) 10/25/17 15:55 INR 1.03 (0.93-1.08) 10/25/17 15:55 APTT 26.8 Seconds (25.1-36.5) 10/25/17 15:55 Assessment and Plan - Assessment and Plan (Free Text) Plan: Pt seen and examined by me. The labs and medications have been reviewed. I reviewed the note of the medical hospital sales and I agree with it. Pt on Protonix. GI following. On Liquid diet.
--- NOTE | 2017-10-28 16:28 | CP.PCM.PN ---
<Rahul Valdovinos - Last Filed: 10/28/17 16:33> Subjective - Date & Time of Evaluation Date of Evaluation: 10/28/17 Time of Evaluation: 11:30 - Subjective Subjective: PGY5 GI Follow-up Pt seen and examined bedside denies any abd pain, rectal bleeding, and hematemesis tolerating diet ROS: 12 point ROS conducted, neg other than above Objective - Vital Signs/Intake and Output Vital Signs (last 24 hours): Temp Pulse Resp BP Pulse Ox 98.3 F 72 20 131/86 96 10/28/17 06:00 10/28/17 06:00 10/28/17 06:00 10/28/17 06:00 10/28/17 06:00 Intake and Output: 10/28/17 10/28/17 06:59 18:59 Intake Total 2280 640 Output Total 400 Balance 1880 640 - Medications Medications: Current Medications Sodium Chloride (Sodium Chloride 0.9%) 1,000 mls @ 100 mls/hr IV .Q10H [facility] Last Admin: 10/28/17 11:29 Dose: 100 mls/hr Pantoprazole Sodium (Protonix Ec Tab) 40 mg PO 0600,1600 [facility] Last Admin: 10/28/17 07:36 Dose: 40 mg - Labs Labs: 10/28/17 07:20 PT 11.7 SECONDS (9.4-12.5) 10/25/17 15:55 INR 1.03 (0.93-1.08) 10/25/17 15:55 APTT 26.8 Seconds (25.1-36.5) 10/25/17 15:55 - Constitutional Appears: Well, No Acute Distress - Head Exam Head Exam: ATRAUMATIC, NORMOCEPHALIC - Eye Exam Eye Exam: Normal appearance - ENT Exam ENT Exam: Mucous Membranes Moist, Normal Exam - Neck Exam Neck Exam: Normal Inspection - Respiratory Exam Respiratory Exam: Clear to Ausculation Bilateral, NORMAL BREATHING PATTERN. absent: Rales, Rhonchi, Wheezes, Respiratory Distress - Cardiovascular Exam Cardiovascular Exam: REGULAR RHYTHM, +S1, +S2 - GI/Abdominal Exam GI & Abdominal Exam: Soft, Normal Bowel Sounds. absent: Distended, Firm, Guarding, Rigid, Tenderness, Organomegaly - Extremities Exam Extremities Exam: absent: Joint Swelling, Pedal Edema - Neurological Exam Neurological Exam: Alert, Awake, Oriented x3 - Psychiatric Exam Psychiatric exam: Normal Affect, Normal Mood - Skin Skin Exam: Dry, Intact, Normal Color, Warm Assessment and Plan - Assessment and Plan (Free Text) Assessment: Patient is a 47yo male with PMHx significant for PUD, H pylori gastritis (tx naive), tubulovillous adenoma on colonoscopy, diverticulosis who presented to the ED with complaint of dark stool, lightheadedness and fatigue; s/p EGD POD#1 Nathan Class 1b 1.5cm gastric ulcer s/p epinephrine and coagulation,IGV 1 -IGV1 -Nathan Class 1b gastric ulcer w/ visible ulcer s/p epi and coag -Symptomatic anemia R/O acute GI blood loss, hgb stable ~9 -H/O H pylori gastritis -H/O Tubulovillous adenoma -Diverticulosis Plan: -advance diet to soft -continue PPI BID -repeat EGD in 2-3 months -f/u Dr. Hooper -Transfuse as necessary, to keep hgb >7 -Patient due for repeat surveillance colonoscopy in December 2017, outpatient follow up encouraged D/W Dr. Camarena <Maurizio Camarena - Last Filed: 10/28/17 16:47> Objective - Vital Signs/Intake and Output Vital Signs (last 24 hours): Temp Pulse Resp BP Pulse Ox 98.3 F 72 20 131/86 96 10/28/17 06:00 10/28/17 06:00 10/28/17 06:00 10/28/17 06:00 10/28/17 06:00 Intake and Output: 10/28/17 10/28/17 06:59 18:59 Intake Total 2280 640 Output Total 400 Balance 1880 640 - Medications Medications: Current Medications Sodium Chloride (Sodium Chloride 0.9%) 1,000 mls @ 100 mls/hr IV .Q10H [facility] Last Admin: 10/28/17 11:29 Dose: 100 mls/hr Pantoprazole Sodium (Protonix Ec Tab) 40 mg PO 0600,1600 [facility] Last Admin: 10/28/17 07:36 Dose: 40 mg - Labs Labs: 10/28/17 07:20 PT 11.7 SECONDS (9.4-12.5) 10/25/17 15:55 INR 1.03 (0.93-1.08) 10/25/17 15:55 APTT 26.8 Seconds (25.1-36.5) 10/25/17 15:55 Attending/Attestation - Attestation I have personally seen and examined this patient.: Yes I have fully participated in the care of the patient.: Yes I have reviewed all pertinent clinical information, including history, physical exam and plan: Yes Notes (Text): 10/28/17 16:44 Patient seen this am on GI rounds. This is a 47 year old male with PMHx significant for PUD, H pylori gastritis (tx naive), tubulovillous adenoma on colonoscopy, diverticulosis who presented to the ED with complaint of dark stool , lightheadedness and fatigue; s/p EGD POD#3 Nathan Class 1b 1.5cm gastric ulcer s/p epinephrine and coagulation and IGV 1. history of alcohol binge drinking. Today he tolerated clear liquiq diet and H/Hct has been stable. He has bowel movement in am and no blood noted. Continue PPi po daily in am and start diet as tolerated. Repeat EGD in 8-[address] Hooper. Will sign off. Thank you for letting us participate in the care of your patient
[2017-10-28 22:53] VITALS: RESP 20
[2017-10-29] MEDS: Pantoprazole 40 mg EC Tab PO SCH (05:46)
[2017-10-29 06:34] LABS: BASO # 0.01 K/mm3 (0.0-2.0); BASO % 0.2 % (0.0-3.0); EOS # 0.1 (0.0-0.7); EOS % 2.2 % (1.5-5.0); GRAN # 3.47 (1.4-6.5); GRAN % 69.7 % (50.0-68.0); HEMOGLOBIN 7.6 g/dL (14.0-18.0); LYMPH % 19.7 % (22.0-35.0); MEAN CELL VOLUME 90.5 fl (80.0-105.0); MEAN CORPUSCULAR HEMOGLOBIN 31.4 pg (25.0-35.0); MEAN CORPUSCULAR HGB CONC 34.7 g/dl (31.0-37.0); MONO # 0.4 (0.1-0.6); MONO % 8.2 % (1.0-6.0); RBC 2.42 10^6/uL (3.5-6.1); RED CELL DISTRIBUTION WIDTH 15.3 % (11.5-14.5)
[2017-10-29 07:19] LABS: ALBUMIN 2.8 g/dL (3.0-4.8); ALT/SGPT 48 U/L (7-56); AST/SGOT 35 U/L (17-59); BLOOD UREA NITROGEN 7 mg/dL (7-21); CALCIUM 8.2 mg/dL (8.4-10.5); GFR AFRICAN-AMERICAN > 60; GFR NON-AFRICAN AMERICAN > 60
--- NOTE | 2017-10-29 08:15 | PN ---
DATE: 10/27/2017 SUBJECTIVE: Patient is a 47-year-old male. Patient was seen and examined on 10/27/2017, on the bed, looking comfortable. No nausea, vomiting, or diarrhea. No hematuria or hematochezia. No swelling of the legs. No chest pain. No palpitation. No headache or dizziness. PHYSICAL EXAMINATION: VITAL SIGNS: Temperature 98.2, pulse 74, blood pressure , respiratory rate 16. HEENT: Head normocephalic, atraumatic. Eyes PERRLA. Extraocular muscles intact. Conjunctivae clear. Nose patent. Mucous membranes moist. NECK: Supple. No carotid bruit. No JVD or thyromegaly. CHEST: Bilaterally symmetrical. HEART: S1 and S2 positive. LUNGS: Clear to auscultation. ABDOMEN: Soft. Bowel sounds present. No organomegaly. EXTREMITIES: No edema. No cyanosis. NEUROLOGIC: Patient is awake, alert. Follows simple command. MEDICATIONS: Protonix, NS. LABORATORY DATA: White blood cells 5.7, hemoglobin 8.6, hematocrit 25, platelets 153. Hemoglobin A1c 5.3. Triglyceride 342. TSH 2.48. ASSESSMENT AND PLAN: Mr. is a 47-year-old male with severe anemia, status post blood transfusion, again hemoglobin is low, hypertriglyceridemia, history of peptic ulcer disease, history of Helicobacter pylori, gastritis, tubulovillous adenoma on colonoscopy, diverticulosis, came to the emergency room, was complaining of dark stool, lightheadedness, and fatigue, status post esophagogastroduodenoscopy, status post gastric ulcer, symptomatic anemia. Monitoring hemoglobin and hematocrit. History of tubulovillous adenoma. Advanced diet, soft as tolerated. We will get treatment of the hypertriglyceridemia. Continue proton pump inhibitor. Repeat esophagogastroduodenoscopy in 2 to 3 months. Out of bed, physical therapy. We will follow. Lulu Chapa MD
[2017-10-29 08:46] VITALS: BP 149/92; PULSE 72; TEMP 98.3; O2SAT 98
--- NOTE | 2017-10-29 11:24 | CP.PCM.DIS ---
<Braxton Freitas - Last Filed: 10/29/17 15:37> Provider - Provider Date of Admission: 10/25/17 18:09 Attending physician: Lulu Chapa MD Primary care physician: Lulu Chapa MD Consults: LIBRADO Hooper Time Spent in preparation of Discharge (in minutes): 35 Hospital Course - Lab Results Lab Results: Most Recent Lab Values WBC 5.0 10^3/ul (4.5-11.0) 10/29/17 06:10 RBC 2.42 10^6/uL (3.5-6.1) L 10/29/17 06:10 Hgb 7.6 g/dL (14.0-18.0) L 10/29/17 06:10 Hct 21.9 % (42.0-52.0) L 10/29/17 06:10 MCV 90.5 fl (80.0-105.0) 10/29/17 06:10 MCH 31.4 pg (25.0-35.0) 10/29/17 06:10 MCHC 34.7 g/dl (31.0-37.0) 10/29/17 06:10 RDW 15.3 % (11.5-14.5) H 10/29/17 06:10 Plt Count 161 10^3/uL (120.0-450.0) 10/29/17 06:10 MPV 10.0 fl (7.0-11.0) 10/29/17 06:10 Gran % 69.7 % (50.0-68.0) H 10/29/17 06:10 Lymph % (Auto) 19.7 % (22.0-35.0) L 10/29/17 06:10 [place] % (Auto) 8.2 % (1.0-6.0) H 10/29/17 06:10 Eos % (Auto) 2.2 % (1.5-5.0) 10/29/17 06:10 Baso % (Auto) 0.2 % (0.0-3.0) 10/29/17 06:10 Gran # 3.47 (1.4-6.5) 10/29/17 06:10 Lymph # (Auto) 1.0 (1.2-3.4) L 10/29/17 06:10 [place] # (Auto) 0.4 (0.1-0.6) 10/29/17 06:10 Eos # (Auto) 0.1 (0.0-0.7) 10/29/17 06:10 Baso # (Auto) 0.01 K/mm3 (0.0-2.0) 10/29/17 06:10 PT 11.7 SECONDS (9.4-12.5) 10/25/17 15:55 INR 1.03 (0.93-1.08) 10/25/17 15:55 APTT 26.8 Seconds (25.1-36.5) 10/25/17 15:55 Sodium 139 mmol/L (132-148) 10/29/17 06:10 Potassium 4.0 mmol/L (3.6-5.0) 10/29/17 06:10 Chloride 104 mmol/L (98-107) 10/29/17 06:10 Carbon Dioxide 30 mmol/L (21-33) 10/29/17 06:10 Anion Gap 9 (10-20) L 10/29/17 06:10 BUN 7 mg/dL (7-21) 10/29/17 06:10 Creatinine 0.9 mg/dl (0.8-1.5) 10/29/17 06:10 Est GFR ( Amer) > 60 10/29/17 06:10 Est GFR (Non-Af Amer) > 60 10/29/17 06:10 Random Glucose 104 mg/dL (70-110) 10/29/17 06:10 Hemoglobin A1c 5.3 % (4.2-6.5) 10/27/17 07:15 Calcium 8.2 mg/dL (8.4-10.5) L 10/29/17 06:10 Magnesium 2.2 mg/dL (1.7-2.2) 10/25/17 15:55 Iron 99 ug/dL (45-180) 10/27/17 07:15 TIBC 358 ug/dL (261-462) 10/27/17 07:15 % Saturation 28 % (20-55) 10/27/17 07:15 Total Bilirubin 0.2 mg/dL (0.2-1.3) 10/29/17 06:10 AST 35 U/L (17-59) 10/29/17 06:10 ALT 48 U/L (7-56) 10/29/17 06:10 Alkaline Phosphatase 48 U/L (38-126) 10/29/17 06:10 NT-Pro-B Natriuret Pep 140 pg/mL (0-450) 10/27/17 07:15 Total Protein 5.5 g/dL (5.8-8.3) L 10/29/17 06:10 Albumin 2.8 g/dL (3.0-4.8) L 10/29/17 06:10 Globulin 2.7 gm/dL 10/29/17 06:10 Albumin/Globulin Ratio 1.0 (1.1-1.8) L 10/29/17 06:10 Triglycerides 342 mg/dL (35-160) H 10/27/17 07:15 Cholesterol 179 mg/dL (130-200) 10/27/17 07:15 LDL Cholesterol Direct 79 mg/dL (0-129) 10/27/17 07:15 HDL Cholesterol 43 mg/dL (29-60) 10/27/17 07:15 Lipase 41 U/L (23-300) 10/25/17 15:55 Vitamin B12 413 pg/mL (239-931) 10/27/17 07:15 Folate > 20.0 ng/mL 10/27/17 07:15 TSH 3rd Generation 2.48 mIU/mL (0.46-4.68) 10/28/17 07:20 Urine Color Yellow (YELLOW) 10/25/17 15:35 Urine Appearance Clear (CLEAR) 10/25/17 15:35 Urine pH 6.0 (4.7-8.0) 10/25/17 15:35 Ur Specific [place] 1.025 (1.005-1.035) 10/25/17 15:35 Urine Protein Trace mg/dL (<30 mg/dL) H 10/25/17 15:35 Urine Glucose (UA) Negative mg/dL (NEGATIVE) 10/25/17 15:35 Urine Ketones 15 mg/dL (NEGATIVE) H 10/25/17 15:35 Urine Blood Negative (NEGATIVE) 10/25/17 15:35 Urine Nitrate Negative (NEGATIVE) 10/25/17 15:35 Urine Bilirubin Negative (NEGATIVE) 10/25/17 15:35 Urine Urobilinogen 0.2 E.U./dL (<1 E.U./dL) 10/25/17 15:35 Ur Leukocyte Esterase Negative Cal/uL (NEGATIVE) 10/25/17 15:35 Urine RBC 0 - 2 /hpf (0-2) 10/25/17 15:35 Urine WBC 0 - 2 /hpf (0-6) 10/25/17 15:35 Ur Epithelial Cells 0 - 2 /hpf (0-5) 10/25/17 15:35 Blood Type O POSITIVE 10/27/17 09:00 Antibody Screen Negative 10/27/17 09:00 Crossmatch See Detail 10/27/17 09:00 BBK History Checked Patient has bt 10/27/17 09:00 - Hospital Course Hospital Course: 47yo male with past medical history of PUD, H pylori gastritis (tx naive), 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 Patient first noticed melena 2 days prior to admission with 2-3 bowel movements per day. He subsequently developed dizziness and fatigue which prompted his visit. Patient was concerned about recurrent GI bleeding given his history of duodenal ulcers in 2016. Prior to this, he was in his usual state of health and feeling well with no specific complaints. He underwent EGD which revealed oozing gastric ulcers with oozing hemorrhage treated with injection and heater probe, type I isolated gastric varices. He was transfused a total of 2 units of PRBC and his hemoglobin was stable since EGD. He was placed on IVF hydration. His diet was advanced and tolerated well. He was instructed to avoid alcohol, NSAID's and make an appointment with gastroenterology (number provided ) to schedule an appointment for repeat EGD in 1-2 months. He was provided a prescription for Protonix. Patient reported improvement of his symptoms and was agreeable to discharge with follow up instructions provided. Patient seen and case discussed/reviewed with attending, Dr. Navarro Discharge Exam - Head Exam Head Exam: ATRAUMATIC, NORMOCEPHALIC - Eye Exam Eye Exam: EOMI Pupil Exam: PERRL - ENT Exam ENT Exam: Mucous Membranes Moist - Neck Exam Neck exam: Normal Inspection - Respiratory Exam Respiratory Exam: Clear to PA & Lateral. absent: Rales, Rhonchi, Wheezes - Cardiovascular Exam Cardiovascular Exam: RRR, +S1, +S2. absent: Gallop, JVD, Rubs, Systolic Murmur - GI/Abdominal Exam GI & Abdominal Exam: Normal Bowel Sounds, Soft. absent: Distended, Firm, Guarding, Rebound, Rigid, Tenderness - Extremities Exam Extremities exam: normal inspection - Neurological Exam Neurological exam: Alert, CN II-XII Intact, Normal Gait, Oriented x3 - Psychiatric Exam Psychiatric exam: Normal Affect, Normal Mood - Skin Skin Exam: Dry, Intact, Normal Color, Warm Discharge Plan - Discharge Medications Prescriptions: Pantoprazole [Protonix] 40 mg PO ACB #30 ect - Follow Up Plan Condition: FAIR Disposition: HOME/ ROUTINE Instructions: Anemia Caused by Low Iron, Adult (DC), Gastrointestinal Bleeding (DC), Upper GI Endoscopy (DC) Additional Instructions: 1. Follow up with your primary doctor within 1 week of discharge. 2. Follow up with gastroenterology, Dr. Hooper upon discharge. Call the office to make an appointment at [phone]. 3. Take the medication prescribed to you (Protonix) as directed. 4. Return to the emergency room should you have a worsening of your symptoms Referrals: Lulu Chapa MD [Primary Care Provider] - Diego Hooper MD [Staff Provider] - <Darwin Navarro S - Last Filed: 10/29/17 21:50> Provider - Provider Date of Admission: 10/25/17 18:09 Attending physician: Lulu Chapa MD Primary care physician: Lulu Chapa MD Hospital Course - Lab Results Lab Results: Most Recent Lab Values WBC 5.0 10^3/ul (4.5-11.0) 10/29/17 06:10 RBC 2.42 10^6/uL (3.5-6.1) L 10/29/17 06:10 Hgb 7.6 g/dL (14.0-18.0) L 10/29/17 06:10 Hct 21.9 % (42.0-52.0) L 10/29/17 06:10 MCV 90.5 fl (80.0-105.0) 10/29/17 06:10 MCH 31.4 pg (25.0-35.0) 10/29/17 06:10 MCHC 34.7 g/dl (31.0-37.0) 10/29/17 06:10 RDW 15.3 % (11.5-14.5) H 10/29/17 06:10 Plt Count 161 10^3/uL (120.0-450.0) 10/29/17 06:10 MPV 10.0 fl (7.0-11.0) 10/29/17 06:10 Gran % 69.7 % (50.0-68.0) H 10/29/17 06:10 Lymph % (Auto) 19.7 % (22.0-35.0) L 10/29/17 06:10 [place] % (Auto) 8.2 % (1.0-6.0) H 10/29/17 06:10 Eos % (Auto) 2.2 % (1.5-5.0) 10/29/17 06:10 Baso % (Auto) 0.2 % (0.0-3.0) 10/29/17 06:10 Gran # 3.47 (1.4-6.5) 10/29/17 06:10 Lymph # (Auto) 1.0 (1.2-3.4) L 10/29/17 06:10 [place] # (Auto) 0.4 (0.1-0.6) 10/29/17 06:10 Eos # (Auto) 0.1 (0.0-0.7) 10/29/17 06:10 Baso # (Auto) 0.01 K/mm3 (0.0-2.0) 10/29/17 06:10 PT 11.7 SECONDS (9.4-12.5) 10/25/17 15:55 INR 1.03 (0.93-1.08) 10/25/17 15:55 APTT 26.8 Seconds (25.1-36.5) 10/25/17 15:55 Sodium 139 mmol/L (132-148) 10/29/17 06:10 Potassium 4.0 mmol/L (3.6-5.0) 10/29/17 06:10 Chloride 104 mmol/L (98-107) 10/29/17 06:10 Carbon Dioxide 30 mmol/L (21-33) 10/29/17 06:10 Anion Gap 9 (10-20) L 10/29/17 06:10 BUN 7 mg/dL (7-21) 10/29/17 06:10 Creatinine 0.9 mg/dl (0.8-1.5) 10/29/17 06:10 Est GFR ( Amer) > 60 10/29/17 06:10 Est GFR (Non-Af Amer) > 60 10/29/17 06:10 Random Glucose 104 mg/dL (70-110) 10/29/17 06:10 Hemoglobin A1c 5.3 % (4.2-6.5) 10/27/17 07:15 Calcium 8.2 mg/dL (8.4-10.5) L 10/29/17 06:10 Magnesium 2.2 mg/dL (1.7-2.2) 10/25/17 15:55 Iron 99 ug/dL (45-180) 10/27/17 07:15 TIBC 358 ug/dL (261-462) 10/27/17 07:15 % Saturation 28 % (20-55) 10/27/17 07:15 Total Bilirubin 0.2 mg/dL (0.2-1.3) 10/29/17 06:10 AST 35 U/L (17-59) 10/29/17 06:10 ALT 48 U/L (7-56) 10/29/17 06:10 Alkaline Phosphatase 48 U/L (38-126) 10/29/17 06:10 NT-Pro-B Natriuret Pep 140 pg/mL (0-450) 10/27/17 07:15 Total Protein 5.5 g/dL (5.8-8.3) L 10/29/17 06:10 Albumin 2.8 g/dL (3.0-4.8) L 10/29/17 06:10 Globulin 2.7 gm/dL 10/29/17 06:10 Albumin/Globulin Ratio 1.0 (1.1-1.8) L 10/29/17 06:10 Triglycerides 342 mg/dL (35-160) H 10/27/17 07:15 Cholesterol 179 mg/dL (130-200) 10/27/17 07:15 LDL Cholesterol Direct 79 mg/dL (0-129) 10/27/17 07:15 HDL Cholesterol 43 mg/dL (29-60) 10/27/17 07:15 Lipase 41 U/L (23-300) 10/25/17 15:55 Vitamin B12 413 pg/mL (239-931) 10/27/17 07:15 Folate > 20.0 ng/mL 10/27/17 07:15 TSH 3rd Generation 2.48 mIU/mL (0.46-4.68) 10/28/17 07:20 Urine Color Yellow (YELLOW) 10/25/17 15:35 Urine Appearance Clear (CLEAR) 10/25/17 15:35 Urine pH 6.0 (4.7-8.0) 10/25/17 15:35 Ur Specific [place] 1.025 (1.005-1.035) 10/25/17 15:35 Urine Protein Trace mg/dL (<30 mg/dL) H 10/25/17 15:35 Urine Glucose (UA) Negative mg/dL (NEGATIVE) 10/25/17 15:35 Urine Ketones 15 mg/dL (NEGATIVE) H 10/25/17 15:35 Urine Blood Negative (NEGATIVE) 10/25/17 15:35 Urine Nitrate Negative (NEGATIVE) 10/25/17 15:35 Urine Bilirubin Negative (NEGATIVE) 10/25/17 15:35 Urine Urobilinogen 0.2 E.U./dL (<1 E.U./dL) 10/25/17 15:35 Ur Leukocyte Esterase Negative Cal/uL (NEGATIVE) 10/25/17 15:35 Urine RBC 0 - 2 /hpf (0-2) 10/25/17 15:35 Urine WBC 0 - 2 /hpf (0-6) 10/25/17 15:35 Ur Epithelial Cells 0 - 2 /hpf (0-5) 10/25/17 15:35 Blood Type O POSITIVE 10/27/17 09:00 Antibody Screen Negative 10/27/17 09:00 Crossmatch See Detail 10/27/17 09:00 BBK History Checked Patient has bt 10/27/17 09:00 - Hospital Course Hospital Course: Pt seen and examined. I have reviewed the note of the medical education coordinator and agree with it. I have discussed the assessment and plan with the resident. I have reviewed the patient's labs and medications. GI has cleared the pt to go home. Pt is eating well no pain.
== END 2017-10-29 13:43 | disposition home or self-care (01) | DRG 379 ==
LOC: ED 15:14 → ERH 18:09 → 5RSO 20:31
PROVIDERS: ADMIT Internal Medicine; ATTEND Internal Medicine
PROC: 0W3P8ZZ Control Bleeding in Gastrointestinal Tract, Via Natural or Artificial Opening Endoscopic (ICD-10-PCS; principal; 2017-10-26 13:30)
PROC: 30233N1 Transfusion of Nonautologous Red Blood Cells into Peripheral Vein, Percutaneous Approach (ICD-10-PCS; 2017-10-27)
DX: K25.4 Chronic or unspecified gastric ulcer with hemorrhage (principal); I86.4 Gastric varices; D64.9 Anemia, unspecified; E78.1 Pure hyperglyceridemia; K44.9 Diaphragmatic hernia without obstruction or gangrene; Z86.010 Personal history of colon polyps; Z80.0 Family history of malignant neoplasm of digestive organs